=== PATIENT | female | born 1985 | race Caucasian/White ===

== ENCOUNTER 2024-02-20 20:21 | Outpatient (REF) | payer MEDICAID, SELFPAY ==
[2024-02-27 12:10] LABS: Age Gdln ACOG Testing Note (.); HPV Aptima Negative (Negative); IGP, Aptima HPV, rfx 16/18,45 Note (.)
== END 2024-02-20 20:22 | disposition home or self-care (01) ==
LOC: LAB 20:21
PROVIDERS: Visit Provider Obstetrics & Gynecology
DX: Z01.419 Encounter for gynecological examination (general) (routine) without abnormal findings (principal)
CPT/HCPCS: 87624; G0145

== ENCOUNTER 2024-09-17 11:38 | Outpatient (OUT) | payer MEDICAID, SELFPAY ==
[2024-09-17 14:11] LABS: Glucose 70 mg/dL (74-106); Thyroid Stimulating Hormone 1.074 uIU/mL (0.358-3.740)
[2024-09-17 14:31] LABS: Free T4 0.97 ng/dL (0.76-1.46)
[2024-09-17 14:35] LABS: Estimated Average Glucose 82 mg/dL; Glycohemoglobin A1C 4.5 % (4.5-6.2)
[2024-09-18 04:08] LABS: Estradiol 25.9 pg/mL (.); Progesterone <0.1 ng/mL (.); Sex Horm Binding Glob, Serum 84.5 nmol/L (24.6-122.0)
[2024-09-18 08:14] LABS: C-Peptide, Serum 2.5 ng/mL (1.1-4.4)
[2024-09-18 16:10] LABS: Thyroglobulin Antibody <1.0 IU/mL (0.0-0.9); Thyroid Peroxidase (TPO) Ab 10 IU/mL (0-34)
[2024-09-21 14:09] LABS: Reverse T3, Serum 15.1 ng/dL (9.2-24.1)
[2024-09-23 00:06] LABS: Free Testosterone(Direct) 0.8 pg/mL (0.0-4.2); Testosterone 18 ng/dL (8-60)
[2024-09-23 08:14] LABS: Serotonin, Serum 20 ng/mL (31-207)
[2024-09-23 16:10] LABS: Estrone, Serum 43 pg/mL (27-231)
== END 2024-09-17 11:39 | disposition home or self-care (01) ==
LOC: LAB 11:40
PROVIDERS: Visit Provider Obstetrics & Gynecology
DX: E34.9 Endocrine disorder, unspecified (principal)
CPT/HCPCS: 36415; 82306; 82530; 82627; 82670; 82679; 82728; 82947; 83036; 83525; 84144; 84260; 84270; 84402; 84403; 84432; 84436; 84439; 84443; 84481; 84482; 84681; 86376; 86800

== ENCOUNTER 2024-09-21 10:50 | Outpatient (OUT) | payer MEDICAID, SELFPAY ==
--- OUTSIDE RECORDS SUMMARY | 2024-09-21 10:55 | XMS_ITS | CCD ---
Author Organization [facility] Care Team Providers Care Senior Cobol Developer Name Role Phone KEMAR, DR SALAZAR Primary Care Unavailable KARASIK ., DR UP Attending Unavailabl e KARASIK ., DR UP Consulting Unavailabl e KARASIK ., DR UP Admitting Unavailabl e MISC, DR SALAZAR Primary Care Unavailable KARASIK ., DR UP Attending Unavailabl e KARASIK ., DR UP Consulting Unavailabl e KARASIK ., DR UP Admitting Unavailabl e EMMANUEL ., DR NANCE Admitting Unavailable EMMANUEL ., DR NANCE Attending Unavailable EMMANUEL ., DR NANCE Consulting Unavailable KARASIK ., DR UP Primary Care Unavailabl e KARASIK ., DR UP Attending Unavailabl e KARASIK ., DR UP Consulting Unavailabl e KARASIK ., DR UP Admitting Unavailabl e REQUEST, NONE LISTED Primary Care Unavaila ble ZIEBER, DR MANISHA Roe Consulting Unavailable KARASIK ., DR UP Attending Unavailabl e KARASIK ., DR UP Consulting Unavailabl e MISC, DR SALAZAR Primary Care Unavailable KARASIK ., DR UP Admitting Unavailabl e ZIEBER, DR MANISHA Roe Consulting Unavailable KARASIK ., DR UP Consulting Unavailabl e KARASIK ., DR UP Admitting Unavailabl e REQUEST, DR OZUNA LISTED Primary Care Unavaila ble KARASIK ., DR UP Attending Unavailabl e ZIEBER, DR MANISHA Roe Consulting Unavailable KARASIK ., DR UP Consulting Unavailabl e KARASIK ., DR UP Primary Care Unavailabl e KARASIK ., DR UP Admitting Unavailabl e KARASIK ., DR UP Attending Unavailabl e ZIEBER, DR MANISHA Roe Consulting Unavailable KARASIK ., DR UP Admitting Unavailabl e REQUEST, DR OZUNA LISTED Primary Care Unavaila ble JONELLE, KERRI Consulting Unavailable KARASIK ., DR UP Attending Unavailabl e KARASIK ., DR UP Consulting Unavailabl e REQUEST, DR SULMA LISTED Primary Care Unavaila ble KARASIK ., DR UP Attending Unavailabl e KARASIK ., DR UP Admitting Unavailabl e FAWWAD, KLINE H Admitting Unavailable FAWWAD, KLINE H Attending Unavailable FAWWAD, KLINE H Primary Care Unavailable FAWWAD, KLINE H Consulting Unavailable FAWWAD, KLINE H Primary Care Unavailable KARASIK ., DR UP Attending Unavailabl e KARASIK ., DR UP Consulting Unavailabl e KARASIK ., DR UP Admitting Unavailabl e KARASIK ., DR UP Attending Unavailabl e KARASIK ., DR UP Consulting Unavailabl e KARASIK ., DR UP Primary Care Unavailabl e KARASIK ., DR UP Admitting Unavailabl e EMMANUEL ., DR NANCE Admitting Unavailable EMMANUEL ., DR NANCE Attending Unavailable KARASIK ., DR UP Consulting Unavailabl e KARASIK ., DR UP Primary Care Unavailabl e WEST, DR SHELLEY Man Consulting Unavailable REQUEST, DR SULMA LISTED Primary Care Unavaila ble KARASIK ., DR UP Attending Unavailabl e KARASIK ., DR UP Consulting Unavailabl e KARASIK ., DR UP Admitting Unavailabl e ZIEBER, DR MANISHA Roe Consulting Unavailable EMMANUEL ., DR NANCE Attending Unavailable KARASIK ., DR UP Consulting Unavailabl e EMMANUEL ., DR NANCE Admitting Unavailable REQUEST, DR USLMA LISTED Primary Care Unavaila ble ZIEBER, DR MANISHA Roe Consulting Unavailable KARASIK ., DR UP Consulting Unavailabl e KARASIK ., DR UP Admitting Unavailabl e REQUEST, DR OZUNA LISTED Primary Care Unavaila ble KARASIK ., DR UP Attending Unavailabl e KARASIK ., DR UP Attending Unavailabl e KARASIK ., DR UP Consulting Unavailabl e KARASIK ., DR UP Primary Care Unavailabl e KARASIK ., DR UP Admitting Unavailabl e EMMANUEL ., DR NANCE Attending Unavailable KARASIK ., DR UP Consulting Unavailabl e EMMANUEL ., DR NANCE Admitting Unavailable FAWWAD, KLINE H Primary Care Unavailable EMMANUEL ., DR NANCE Consulting Unavailable AGUBOSIM, PIPER Consulting Unavailable KARASIK ., DR UP Procedure Practitioner Radha vailable KARASIK ., DR UP Consulting Unavailabl e REQUEST, DR NONE LISTED Primary Care Unavaila ble KARASIK ., DR UP Attending Unavailabl e KARASIK ., DR UP Admitting Unavailabl e REQUEST, DR NONE LISTED Primary Care Unavaila ble KARASIK ., DR UP Attending Unavailabl e KARASIK ., DR UP Admitting Unavailabl e KARASIK ., DR UP Attending Unavailabl e KARASIK ., DR UP Admitting Unavailabl e REQUEST, DR NONE LISTED Primary Care Unavaila ble KARASIK ., DR UP Attending Unavailabl e KARASIK ., DR UP Consulting Unavailabl e KARASIK ., DR UP Primary Care Unavailabl e KARASIK ., DR UP Admitting Unavailabl e REQUEST, DR NONE LISTED Primary Care Unavaila ble KARASIK ., DR UP Attending Unavailabl e KARASIK ., DR UP Admitting Unavailabl e Shaikh Ceballos MD Primary Care Provider KODI MONTENEGRO Attending Unavailable DANAY MELCHOR Referring Unavailabl e FAWWAD, KLINE Primary Care Unavailable ALISTAIR ZAVALA Attending Unavailable FARAVINDRA, KLINE Referring Unavailable FAWWAD, KLINE Primary Care Unavailable MAGALI, Attending Unavailable MAGALI, Attending Unavailable LEE ANN BENITEZ Attending Unavailable FAWWAD, KLINE Attending Unavailable Danay Melchor MD Unavailable Shaikh Ceballos MD Unavailable Shaikh Ceballos MD Primary Care Provider Allergies Allergy Classification Reported Allergen(s) Allergy Type Date of Onset Reaction(s) Facility (1 source) Amoxicillin Drug Allergy 7 [facility] (2 sources) Penicillins; Translations: [PENICILLINS] Drug allergy (disorder) 7 [facility] (4 sources) Azithromycin; Translations: [AZITHROMYCIN] Drug Allergy 8 [facility] (2 sources) Penicillins Propensity to adverse reactions to drug 8 [facility] (1 source) Amoxicillin Drug Allergy 4 Rash, Other [facility] (1 source) Penicillin G Drug Allergy 4 Rash [facility] (1 source) Penicillins Drug Allergy 4 Rash, Other [facility] Medications Current Medications Medication Drug Class(es) Dates Sig (Normalized) Sig (Original) acetaminophen 325 mg / oxyCODONE hydrochloride 5 mg oral tablet (2 sources) Opioid Agonist Start: 11-10-2023 oxyCODONE-acetamin ophen (PERCOCET) 5-325 mg per tablet Indications: Other acute appendicitis Take 1 tablet by mouth every 6 (six) hours as needed for pain for up to 8 doses. Max Daily Amount: 4 tablets 8 tablet 0 11/10/2023 Active ibuprofen 800 mg oral tablet (2 sources) Nonsteroidal Anti-inflammatory Drug Start: 11-10-2023 take 1 tablet by mouth every eight hours as needed for pain and fever ibuprofen (MOTRIN) 800 mg tablet Take 1 tablet (800 mg total) by mouth every 8 (eight) hours as needed for pain or fever. 30 tablet 0 11/10/2023 Active sertraline 50 mg oral tablet (3 sources) Serotonin Reuptake Inhibitor Start: 02-20-2024 End: 02-19-2025 take 1 tablet by mouth once daily sertraline (Zoloft) 50 MG tablet Indications: Hormone disorder Take 1 tablet (50 mg) by mouth Daily 30 tablet 11 02/20/2024 02/19/2025 Active take 1 tablet by mouth in the mo rning sertraline (ZOLOFT) 50 mg tablet Take 1 tablet (50 mg total) by mouth in the morning. 0 Active Problems Active Problems Problem Classification Problem Date Documented Date Episodic/Chronic Anxiety disorders (1 source) Mixed anxiety and depressive disorder; Translations: [Other specified anxiety disorders] Onset: 12-23-2023 12-23-2023 Chronic Appendicitis and other appendiceal conditions (2 sources) Acute appendicitis; Translations: [Other acute appendicitis without perforation or gangrene] Onset: 11-10-2023 11-10-2023 Episodic Blindness and vision defects (2 sources) Bilateral myopia of eyes; Translations: [Myopia, bilateral] Onset: 12-03-2023 12-03-2023 Episodic Coagulation and hemorrhagic disorders (6 sources) Activated protein C resistance; Translations: [Factor V Leiden mutation] Onset: 03-24-2022 Chronic Deficiency and other anemia (1 source) Iron deficiency anemia secondary to blood loss (chronic); Translations: [IRON DEFIC ANEMIA SEC BLD LOSS CHRN] Onset: 02-23-2023 Chronic Diabetes or abnormal glucose tolerance complicating ; childbirth; or the puerperium (13 sources) Personal history of gestational diabetes; Translations: [Gestational diabetes mellitus in childbirth, diet controlled] Onset: 06-29-2022 Episodic Esophageal disorders (1 source) Gastro-esophageal reflux disease without esophagitis; Translations: [GERD WITHOUT ESOPHAGITIS] Onset: 07-24-2022 Chronic Immunizations and screening for infectious disease (1 source) Encounter for screening for human papillomavirus (HPV); Translations: [ENC SCREENING HUMAN PAPILLOMAVIRUS] Onset: 02-23-2023 Episodic Mood disorders (1 source) Major depression, single episode; Translations: [Major depressive disorder, single episode, unspecified] Onset: 01-29-2024 01-29-2024 Chronic Mood disorders (1 source) Mood disorders; Translations: [DEPRESSION UNSPECIFIED] Onset: 07-24-2022 Other eye disorders (1 source) Physiologic anisocoria; Translations: [Anisocoria] 12-03-2023 Chronic Other eye disorders (1 source) Anisocoria; Translations: [Anisocoria] Onset: 12-03-2023 Chronic Other nutritional; endocrine; and metabolic disorders (1 source) Obesity caused by energy imbalance; Translations: [Class 1 obesity due to excess calories without serious comorbidity with body mass index (BMI) of 33.0 to 33.9 in adult] Onset: 12-23-2023 12-23-2023 Chronic Other nutritional; endocrine; and metabolic disorders (1 source) Obese class I; Translations: [Class 1 obesity] Onset: 01-29-2024 01-29-2024 Chronic Residual codes; unclassified (2 sources) Acquired absence of other specified parts of digestive tract; Translations: [Other postprocedural status] Onset: 12-04-2023 12-03-2023 Episodic Unclassified (1 source) CONTACT W/AND (SUSP) EXPOS COVID-19; Translations: [CONTACT W/AND (SUSP) EXPOS COVID-19] Onset: 07-24-2022 Unclassified (1 source) POST-OP VISIT Onset: 12-04-2023 Unclassified (1 source) Blurred Vision Onset: 12-03-2023 Past or Other Problems Problem Classification Problem Date Documented Date Episodic/Chronic Malaise and fatigue (4 sources) Other fatigue; Translations: [OTHER FATIGUE] Onset: 10-16-2022 Episodic OB-related trauma to perineum and vulva (1 source) First degree perineal laceration during delivery; Translations: [FIRST DEG PERINEAL LAC DUR DELIV] Onset: 07-24-2022 Episodic Other aftercare (1 source) Other assisted (current) drug therapy; Translations: [OT SOLDERING MACHINE OPERATOR HELPER CURRENT DRUG THERAPY] Onset: 07-24-2022 Episodic Other complications of ; puerperium affecting management of mother (1 source) Rupture of uterus during labor; Translations: [RUPTURE OF UTERUS DURING LABOR] Onset: 07-24-2022 Episodic Other complications of ; puerperium affecting management of mother (1 source) Other diseases of the blood and blood-forming organs and certain disorders involving the immune mechanism complicating childbirth; Translations: [OT DZ BLD BFO IMMUN COMP CHILDBRTH] Onset: 07-24-2022 Episodic Other complications of ; puerperium affecting management of mother (1 source) Other immediate hemorrhage; Translations: [OT IMMEDIATE HEMORRHAGE] Onset: 07-24-2022 Episodic Other complications of ; puerperium affecting management of mother (1 source) Other mental disorders complicating childbirth; Translations: [OT MENTAL D/O COMP CHILDBIRTH] Onset: 07-24-2022 Episodic Other complications of ; puerperium affecting management of mother (1 source) Diseases of the digestive system complicating childbirth; Translations: [DZ DIGESTIVE SYSTEM COMP CHILDBIRTH] Onset: 07-24-2022 Episodic Other complications of (1 source) Supervision of elderly multigravida, third trimester; Translations: [SUP ELDER MULTIGRAVIDA THIRD TRI] Onset: 06-01-2022 Episodic Other complications of (1 source) Other diseases of the blood and blood-forming organs and certain disorders involving the immune mechanism complicating , unspecified trimester; Translations: [OTH DZ BLD BFO IMMN COMP PG UNS TRI] Onset: 05-10-2022 Episodic Other and delivery including normal (5 sources) Encounter for routine follow-up; Translations: [Single live ] Onset: 07-20-2022 Episodic Other screening for suspected conditions (not mental disorders or infectious disease) (20 sources) Encounter for screening for malignant neoplasm of cervix; Translations: [Encounter for screening for Streptococcus B] Onset: 03-12-2022 Episodic Other skin disorders (1 source) Lesion of scalp; Translations: [Disorder of the skin and subcutaneous tissue, unspecified] Onset: 03-25-2024 03-25-2024 Episodic Otitis media and related conditions (1 source) Otitis media of left ear; Translations: [Otitis media, unspecified, left ear] Onset: 01-29-2024 01-29-2024 Episodic Residual codes; unclassified (1 source) 38 weeks gestation of ; Translations: [38 WEEKS GESTATION OF ] Onset: 07-24-2022 Episodic Residual codes; unclassified (1 source) 37 weeks gestation of ; Translations: [37 WEEKS GESTATION OF ] Onset: 07-08-2022 Episodic Residual codes; unclassified (1 source) 36 weeks gestation of ; Translations: [36 WEEKS GESTATION OF ] Onset: 07-02-2022 Episodic Residual codes; unclassified (1 source) 35 weeks gestation of ; Translations: [35 WEEKS GESTATION OF ] Onset: 06-25-2022 Episodic Residual codes; unclassified (1 source) 33 weeks gestation of ; Translations: [33 WEEKS GESTATION OF ] Onset: 06-10-2022 Episodic Residual codes; unclassified (1 source) 32 weeks gestation of ; Translations: [32 WEEKS GESTATION OF ] Onset: 06-01-2022 Episodic Residual codes; unclassified (1 source) 20 weeks gestation of ; Translations: [20 WEEKS GESTATION OF ] Onset: 03-15-2022 Episodic Results Test Name Value Interpretation Reference Range Facility ALL T3 FREEon 09-17-2024 Free T3 [Mass/Vol] 2.2 pg/mL 2.18 - 3. 98 pg/mL [facility] ALL THYROID STIM HORMONEon 1 TSH Qn 1.074 m[IU]/L [facility] ALL THYROXINE (T4)on 024 T4 [Mass/Vol] 7.5 ug/dL 4.80 - 13.90 ug/dL [facility] No Panel Informationon 09-17 [facility] GLUCOSE BLOODon 09-17-20 24 Glucose [Mass/Vol] 70 mg/dL Low 74 - 106 mg/dL NO [facility] Interpretation and review of laboratory results Abnormal [facility] Surgical Pathologyon 023 Surgical Pathology Normal [facility] Comment on above: Result Comment: [facility] [address] [place] [address] Surgical Pathology Consultation Patient Name:RONAN PENG:1985 (Age: 38)Gender:FTaken:11/10/2023Reported:11/18/2023hysician(s):Brett Berry D.O. ([phone])Copy To: Rec. #:[id number]: #[id number] Final Pathologic Diagnosis Appendix, appendectomy: Acute appendicitis. Report Electronically Signed Out 11/18/2023leyla Cbob MD [facility] [address] [place] [address], License number: [id number]. Clinical History Acute appendicitis. Gross Description Received in formalin labeled PENG, appendix is a vermiform appendix that measures 6.4 x 0.8 x 0.7 cm. The mesoappendix is yellow-jhaveri and lobulated up to 0.5 cm in thickness. The proximal margin is closed by metallic kayode and is now inked black. The serosal surface is west to purple-jhaveri with possible exudate. The appendix is serially sectioned to reveal a lumen that measures 0.1-0.3 cm. The lumen is filled with vegetative hemorrhagic material. No serosal rupture or defect is identified. Life Sciences Director cross-sections are submitted in a single cassette to include the proximal margin, two cross-sections, and a half portion of the distal tip. (1, ss, [id number],m1) DM. dm/11/11/2023P Specimen(s) Received Appendix Fee Codes(s): 1; 98243 PAP ACOG PANEL 2: 30 to 65on 02-26-2023 . . Normal [facility] Comment on above: Result Comment: Perf ormed at: WB Performed By: #### C BC #### [facility] [address] [address] [address] Perez Tabares Age Gdln ACOG Testing 30-[address] [facility] Comment on above: Performed By: #### C BC #### [facility] [address] [address] [address] Perez Tabares DIAGNOSIS: Comment Normal [facility] Comment on above: Result Comment: NEGA TIVE FOR INTRAEPITHELIAL LESION OR MALIGNANCY. Performed at: WB Performed By: #### C BC #### [facility] [address] [place] [address] Dr. Perez Tabares HPV Aptima Negative Normal Negative [facility] Comment on above: Result Comment: This nucleic acid amplification test detects fourteen high-risk HPV types (16,18,31,33,35,39,45,51,52,56,58,59,66,68) without differentiation. Performed at: =G Performed By: #### C BC #### [facility] [address] [address] [address] Perez Tabares HPV Genotype Reflex Comment Normal [facility] Comment on above: Result Comment: Crit eria not met, HPV Genotype not performed. Performed at: WB Performed By: #### C BC #### [facility] [address] [address] [address] Perez Tabares Methodology: Comment Normal [facility] Comment on above: Result Comment: This liquid based ThinPrep(R) pap test was screened with the use of an image guided system. Performed at: WB Performed By: #### C BC #### [facility] [address] [place] [address] Dr. Perez Tabares Note: Comment Normal [facility] Comment on above: Result Comment: The Pap smear is a screening test designed to aid in the detection of premalignant and malignant conditions of the uterine cervix. It is not a diagnostic procedure and should not be used as the sole means of detecting cervical cancer. Both false-positive and false-negative reports do occur. . Performed at: WB Performed By: #### C BC #### [facility] [address] [place] [address] Dr. Perez Tabares Performed by: Comment Normal [facility] Comment on above: Result Comment: Michelle Woo, Supervisory Quill Cleaning Machine Operator (ASCP) Performed at: WB Performed By: #### C BC #### [facility] [address] [place] [address] Dr. Perez Tabares Specimen adequacy: Comment Normal [facility] Comment on above: Result Comment: Sati sfactory for evaluation. Endocervical and/or squamous metaplastic cells (endocervical component) are present. Performed at: WB Performed By: #### C BC #### [facility] [address] [place] [address] Dr. Perez Tabares CBC AUTO DIFFon 02-19-2023 BASO # 0.0 103/ul Normal 0.0-0.[address] [facility] Comment on above: Performed By: #### C BC #### [facility] [address] [place] [address] Dr. Perez Tabares Basophils/100 WBC (Bld) 0.6 % Normal 0.2-2.[address] [facility] Comment on above: Performed By: #### C BC #### [facility] [address] [place] [address] Dr. Perez Tabares EO # 0.5 103/ul Normal 0.0-0.[address] [facility] Comment on above: Performed By: #### C BC #### [facility] [address] [place] [address] Dr. Perez Tabares Eosinophils/100 WBC (Bld) 7.5 % Critically high 0.9-7.[address] [facility] Comment on above: Performed By: #### C BC #### [facility] [address] [place] [address] Dr. Perez Tabares Erythrocyte distribution width (RBC) [Ratio] 13.0 % Normal 11.0-15.[address] [facility] Comment on above: Performed By: #### C BC #### [facility] [address] [place] [address] Dr. Perez Tabares Hematocrit (Bld) [Volume fraction] 38.9 % Normal 36.0-48.[address] [facility] Comment on above: Performed By: #### C BC #### [facility] [address] [place] [address] Dr. Perez Tabares Hemoglobin (Bld) [Mass/Vol] 13.3 g/dL Normal 12.0-16.[address] [facility] Comment on above: Performed By: #### C BC #### [facility] [address] [place] [address] Dr. Perez Tabares IG # 0.01 10e3/ul Normal 0.00-0.[address] [facility] Comment on above: Performed By: #### C BC #### [facility] [address] [place] [address] Dr. Perez Tabares IG % 0.1 % Normal 0.0-0.[address] [facility] Comment on above: Performed By: #### C BC #### [facility] [address] [place] [address] Dr. Perez Tabares LYMPH # 2.2 103/ul Normal 1.2-3.[address] [facility] Comment on above: Performed By: #### C BC #### [facility] [address] [place] [address] Dr. Perez Tabares Lymphocytes/100 WBC (Bld) 31.9 % Normal 20.5-60.[address] [facility] Comment on above: Performed By: #### C BC #### [facility] [address] [place] [address] Dr. Perez Tabares MANUAL DIFF REQ NO Normal [facility] Comment on above: Performed By: #### C BC #### [facility] [address] [place] [address] Dr. Perez Tabares MCH (RBC) [Entitic mass] 30.7 pg Normal 26.7-34.[address] [facility] Comment on above: Performed By: #### C BC #### [facility] [address] [place] [address] Dr. Perez Tabares MCHC (RBC) [Mass/Vol] 34.2 g/dL Normal 29.9-35.[address] [facility] Comment on above: Performed By: #### C BC #### [facility] [address] [place] [address] Dr. Perez Tabares MCV (RBC) [Entitic vol] 89.8 fL Normal 81.0-99.[address] [facility] Comment on above: Performed By: #### C BC #### [facility] [address] [place] [address] Dr. Perez Tabares MONO # 0.5 103/ul Normal 0.3-0.[address] [facility] Comment on above: Performed By: #### C BC #### [facility] [address] [place] [address] Dr. Perez Tabares Monocytes/100 WBC (Bld) 6.4 % Normal 1.7-12.[address] [facility] Comment on above: Performed By: #### C BC #### [facility] [address] [place] [address] Dr. Perez Tabares NEUT # 3.8 103/ul Normal 1.4-6.[address] [facility] Comment on above: Performed By: #### C BC #### [facility] [address] [place] [address] Dr. Perez Tabares Neutrophils/100 WBC (Bld) 53.5 % Normal 43.0-75.0 [facility] Comment on above: Performed By: #### C BC #### [facility] [address] [place] [address] Dr. Perez Tabares Platelet mean volume (Bld) [Entitic vol] 10.2 fL Normal 9.5-13.5 [facility] Comment on above: Performed By: #### C BC #### [facility] [address] [place] [address] Dr. Perez Tabares PLT 253 103/ul Normal 150-450 [facility] Comment on above: Performed By: #### C BC #### [facility] [address] [place] [address] Dr. Perez Tabares RBC 4.33 106/ul Normal 4.20-5.[address] [facility] Comment on above: Performed By: #### C BC #### [facility] [address] [place] [address] Dr. Perez Tabares WBC 7.0 103/ul Normal 4.0-11.[address] [facility] Comment on above: Performed By: #### C BC #### [facility] [address] [place] [address] Dr. Perez Tabares GLYCOHEMOGLOBIN A1Con 2022 ADA RECOMMENDATION SEE BELOW Normal [facility] Comment on above: Result Comment: ADA RECOMMENDED LIMIT 4.0 - 6.0 ADA THERAPEUTIC TARGET < 7.0 ACTION SUGGESTED > 7.0 Performed By: #### F VPCR #### [facility] [address] [place] [address] Dr. Perez Tabares Glucose [Mass/Vol] 94 mg/dL Normal [facility] Comment on above: Performed By: #### F VPCR #### [facility] [address] [place] [address] Dr. Perez Tabares HbA1c (Bld) [Mass fraction] 4.9 % Normal 4.5-6.[address] [facility] Comment on above: Performed By: #### F VPCR #### [facility] [address] [place] [address] Dr. Perez Tabares CBC AUTO DIFFon 10-16-2022 BASO # 0.0 103/ul Normal 0.0-0.[address] [facility] Comment on above: Performed By: #### F VPCR #### [facility] [address] [place] [address] Dr. Perez Tabares Basophils/100 WBC (Bld) 0.5 % Normal 0.2-2.[address] [facility] Comment on above: Performed By: #### F VPCR #### [facility] [address] [place] [address] Dr. Perez Tabares EO # 1.2 103/ul Critically high 0.0-0.7 [facility] Comment on above: Performed By: #### F VPCR #### [facility] [address] [place] [address] Dr. Perez Tabares Eosinophils/100 WBC (Bld) 15.0 % Critically high 0.9-7.[address] [facility] Comment on above: Performed By: #### F VPCR #### [facility] [address] [place] [address] Dr. Perez Tabares Erythrocyte distribution width (RBC) [Ratio] 14.7 % Normal 11.0-15.[address] [facility] Comment on above: Performed By: #### F VPCR #### [facility] [address] [place] [address] Dr. Perez Tabares Hematocrit (Bld) [Volume fraction] 38.5 % Normal 36.0-48.[address] [facility] Comment on above: Performed By: #### F VPCR #### [facility] [address] [place] [address] Dr. Perez Tabares Hemoglobin (Bld) [Mass/Vol] 13.1 g/dL Normal 12.0-16.[address] [facility] Comment on above: Performed By: #### F VPCR #### [facility] [address] [place] [address] Dr. Perez Tabares IG # 0.01 10e3/ul Normal 0.00-0.[address] [facility] Comment on above: Performed By: #### F VPCR #### [facility] [address] [place] [address] Dr. Perez Tabares IG % 0.1 % Normal 0.0-0.5 [facility] Comment on above: Performed By: #### F VPCR #### [facility] [address] [place] [address] Dr. Perez Tabares LYMPH # 2.4 103/ul Normal 1.2-3.[address] [facility] Comment on above: Performed By: #### F VPCR #### [facility] [address] [place] [address] Dr. Perez Tabares Lymphocytes/100 WBC (Bld) 30.8 % Normal 20.5-60.[address] [facility] Comment on above: Performed By: #### F VPCR #### [facility] [address] [place] [address] Dr. Perez Tabares MANUAL DIFF REQ NO Normal [facility] Comment on above: Performed By: #### F VPCR #### [facility] [address] [place] [address] Dr. Perez Tabares MCH (RBC) [Entitic mass] 29.4 pg Normal 26.7-34.0 [facility] Comment on above: Performed By: #### F VPCR #### [facility] [address] [place] [address] Dr. Perez Tabares MCHC (RBC) [Mass/Vol] 34.0 g/dL Normal 29.9-35.2 [facility] Comment on above: Performed By: #### F VPCR #### [facility] [address] [place] [address] Dr. Perez Tabares MCV (RBC) [Entitic vol] 86.5 fL Normal 81.0-99.[address] [facility] Comment on above: Performed By: #### F VPCR #### [facility] [address] [place] [address] Dr. Perez Tabares MONO # 0.5 103/ul Normal 0.3-0.[address] [facility] Comment on above: Performed By: #### F VPCR #### [facility] [address] [place] [address] Dr. Perez Tbaares Monocytes/100 WBC (Bld) 6.1 % Normal 1.7-12.0 [facility] Comment on above: Performed By: #### F VPCR #### [facility] [address] [place] [address] Dr. Perez Tabares NEUT # 3.6 103/ul Normal 1.4-6.5 [facility] Comment on above: Performed By: #### F VPCR #### [facility] [address] [place] [address] Dr. Perez Tabares Neutrophils/100 WBC (Bld) 47.5 % Normal 43.0-75.[address] [facility] Comment on above: Performed By: #### F VPCR #### [facility] [address] [place] [address] Dr. Perez Tabares Platelet mean volume (Bld) [Entitic vol] 10.4 fL Normal 9.5-13.[address] [facility] Comment on above: Performed By: #### F VPCR #### [facility] [address] [place] [address] Dr. Perez Tabares PLT 245 103/ul Normal 150-450 [facility] Comment on above: Performed By: #### F VPCR #### [facility] [address] [place] [address] Dr. Perez Tabares RBC 4.45 106/ul Normal 4.20-5.40 [facility] Comment on above: Performed By: #### F VPCR #### [facility] [address] [place] [address] Dr. Perez Tabares WBC 7.7 103/ul Normal 4.0-11.0 [facility] Comment on above: Performed By: #### F VPCR #### [facility] [address] [place] [address] Dr. Perez Tabares TSHon 10-16-2022 TSH 1.131 uIU/mL Normal 0.358-3.740 [facility] Comment on above: Performed By: #### F IB, PT, PTT #### [facility] [address] [place] [address] Dr. Perez Tabares PRBC LEUKOREDUCEDon 07-17-20 ABO and Rh group Nom (Bld) Cross Match Result Compatible Unit Blood Type A Pos Unit Number [id number] Status Information Transfused Product ID Red Blood Cells Product Code [id number] Cross Match Result Compatible Unit Blood Type A Pos Unit Number [id number] Status Information Transfused Product ID Red Blood Cells Product Code [id number] Normal [facility] Comment on above: Performed By: #### F VPCR #### [facility] [address] [place] [address] Dr. Perez Tabares ABO and Rh group Nom (Bld) Cross Match Result Compatible Unit Blood Type A Pos Unit Number [id number] Status Information Transfused Product ID Red Blood Cells Product Code [id number] Cross Match Result Compatible Unit Blood Type A Pos Unit Number [id number] Status Information Transfused Product ID Red Blood Cells Product Code [id number] Normal [facility] Comment on above: Performed By: #### F VPCR #### [facility] [address] [place] [address] Dr. Perez Tabares CBC AUTO DIFFon 07-14-2022 BASO # 0.0 103/ul Normal 0.0-0.1 [facility] Comment on above: Performed By: #### C BC #### [facility] [address] [place] [address] Dr. Perez Tabares Basophils/100 WBC (Bld) 0.3 % Normal 0.2-2.0 [facility] Comment on above: Performed By: #### C BC #### [facility] [address] [place] [address] Dr. Perez Tabares EO # 0.4 103/ul Normal 0.0-0.7 [facility] Comment on above: Performed By: #### C BC #### [facility] [address] [place] [address] Dr. Perez Tabares Eosinophils/100 WBC (Bld) 3.4 % Normal 0.9-7.0 [facility] Comment on above: Performed By: #### C BC #### [facility] [address] [place] [address] Dr. Perez Tabares Erythrocyte distribution width (RBC) [Ratio] 16.1 % Critically high 11.0-15.0 [facility] Comment on above: Performed By: #### C BC #### [facility] [address] [place] [address] Dr. Perez Tabares Hematocrit (Bld) [Volume fraction] 24.6 % Critically low 36.0-48.0 [facility] Comment on above: Performed By: #### C BC #### [facility] [address] [address] [address] Perez Tabares Hemoglobin (Bld) [Mass/Vol] 8.3 g/dL Critically low 12.0-16.[address] [facility] Comment on above: Performed By: #### C BC #### [facility] [address] [place] [address] Dr. Perez Tabares IG # 0.13 10e3/ul Critically high 0.00-0.03 [facility] Comment on above: Performed By: #### C BC #### [facility] [address] [place] [address] Dr. Perez Tabares IG % 1.1 % Critically high 0.0-0.5 [facility] Comment on above: Performed By: #### C BC #### [facility] [address] [place] [address] Dr. Perez Tabares LYMPH # 2.0 103/ul Normal 1.2-3.8 [facility] Comment on above: Performed By: #### C BC #### [facility] [address] [place] [address] Dr. Perez Tabares Lymphocytes/100 WBC (Bld) 17.3 % Critically low 20.5-60.[address] [facility] Comment on above: Performed By: #### C BC #### [facility] [address] [place] [address] Dr. Perez Tabares MANUAL DIFF REQ NO Normal [facility] Comment on above: Performed By: #### C BC #### [facility] [address] [place] [address] Dr. Perez Tabares MCH (RBC) [Entitic mass] 30.1 pg Normal 26.7-34.0 [facility] Comment on above: Performed By: #### C BC #### [facility] [address] [place] [address] Dr. Perez Tabares MCHC (RBC) [Mass/Vol] 33.7 g/dL Normal 29.9-35.2 [facility] Comment on above: Performed By: #### C BC #### [facility] [address] [place] [address] Dr. Perez Tabares MCV (RBC) [Entitic vol] 89.1 fL Normal 81.0-99.[address] [facility] Comment on above: Performed By: #### C BC #### [facility] [address] [place] [address] Dr. Perez Tabares MONO # 0.7 103/ul Normal 0.3-0.[address] [facility] Comment on above: Performed By: #### C BC #### [facility] [address] [place] [address] Dr. Perez Tabares Monocytes/100 WBC (Bld) 5.7 % Normal 1.7-12.[address] [facility] Comment on above: Performed By: #### C BC #### [facility] [address] [place] [address] Dr. Perez Tabares NEUT # 8.3 103/ul Critically high 1.4-6.5 [facility] Comment on above: Performed By: #### C BC #### [facility] [address] [place] [address] Dr. Perez Tabares Neutrophils/100 WBC (Bld) 72.2 % Normal 43.0-75.[address] [facility] Comment on above: Performed By: #### C BC #### [facility] [address] [place] [address] Dr. Perez Tabares Platelet mean volume (Bld) [Entitic vol] 10.1 fL Normal 9.5-13.5 [facility] Comment on above: Performed By: #### C BC #### [facility] [address] [place] [address] Dr. Perez Tabares PLT 169 103/ul Normal 150-450 [facility] Comment on above: Performed By: #### C BC #### [facility] [address] [place] [address] Dr. Perez Tabares RBC 2.76 106/ul Critically low 4.20-5.40 [facility] Comment on above: Performed By: #### C BC #### [facility] [address] [place] [address] Dr. Perez Tabares WBC 11.5 103/ul Critically high 4.0-11.0 [facility] Comment on above: Performed By: #### C BC #### [facility] [address] [place] [address] Dr. Perez Tabares CBC AUTO DIFFon 07-13-2022 BASO # 0.0 103/ul Normal 0.0-0.[address] [facility] Comment on above: Performed By: #### C BC #### [facility] [address] [place] [address] Dr. Perez Tabares Basophils/100 WBC (Bld) 0.2 % Normal 0.2-2.[address] [facility] Comment on above: Performed By: #### C BC #### [facility] [address] [place] [address] Dr. Perez Tabares EO # 0.1 103/ul Normal 0.0-0.[address] [facility] Comment on above: Performed By: #### C BC #### [facility] [address] [place] [address] Dr. Perez Tabares Eosinophils/100 WBC (Bld) 0.4 % Critically low 0.9-7.[address] [facility] Comment on above: Performed By: #### C BC #### [facility] [address] [place] [address] Dr. Perez Tabares Erythrocyte distribution width (RBC) [Ratio] 16.0 % Critically high 11.0-15.[address] [facility] Comment on above: Performed By: #### C BC #### [facility] [address] [place] [address] Dr. Perez Tabares Hematocrit (Bld) [Volume fraction] 22.9 % Critically low 36.0-48.[address] [facility] Comment on above: Performed By: #### C BC #### [facility] [address] [place] [address] Dr. Perez Tabares Hemoglobin (Bld) [Mass/Vol] 7.9 g/dL Critically low 12.0-16.[address] [facility] Comment on above: Performed By: #### C BC #### [facility] [address] [place] [address] Dr. Perez Tabares IG # 0.13 10e3/ul Critically high 0.00-0.03 [facility] Comment on above: Performed By: #### C BC #### [facility] [address] [place] [address] Dr. Perez Tabares IG % 1.0 % Critically high 0.0-0.5 [facility] Comment on above: Performed By: #### C BC #### [facility] [address] [place] [address] Dr. Perez Tabares LYMPH # 1.5 103/ul Normal 1.2-3.[address] [facility] Comment on above: Performed By: #### C BC #### [facility] [address] [place] [address] Dr. Perez Tabares Lymphocytes/100 WBC (Bld) 11.7 % Critically low 20.5-60.[address] [facility] Comment on above: Performed By: #### C BC #### [facility] [address] [place] [address] Dr. Perez Tabares MANUAL DIFF REQ NO Normal [facility] Comment on above: Performed By: #### C BC #### [facility] [address] [place] [address] Dr. Perez Tabares MCH (RBC) [Entitic mass] 29.8 pg Normal 26.7-34.[address] [facility] Comment on above: Performed By: #### C BC #### [facility] [address] [place] [address] Dr. Perez Tabares MCHC (RBC) [Mass/Vol] 34.5 g/dL Normal 29.9-35.[address] [facility] Comment on above: Performed By: #### C BC #### [facility] [address] [place] [address] Dr. Perez Tabares MCV (RBC) [Entitic vol] 86.4 fL Normal 81.0-99.[address] [facility] Comment on above: Performed By: #### C BC #### [facility] [address] [place] [address] Dr. Perez Tabares MONO # 0.7 103/ul Normal 0.3-0.[address] [facility] Comment on above: Performed By: #### C BC #### [facility] [address] [place] [address] Dr. Perez Tabares Monocytes/100 WBC (Bld) 5.8 % Normal 1.7-12.[address] [facility] Comment on above: Performed By: #### C BC #### [facility] [address] [place] [address] Dr. Perez Tabares NEUT # 10.1 103/ul Critically high 1.4-6.5 [facility] Comment on above: Performed By: #### C BC #### [facility] [address] [place] [address] Dr. Perez Tabares Neutrophils/100 WBC (Bld) 80.9 % Critically high 43.0-75.[address] [facility] Comment on above: Performed By: #### C BC #### [facility] [address] [place] [address] Dr. Perez Tabares Platelet mean volume (Bld) [Entitic vol] 10.7 fL Normal 9.5-13.[address] [facility] Comment on above: Performed By: #### C BC #### [facility] [address] [place] [address] Dr. Perez Tabares PLT 133 103/ul Critically low 150-450 [facility] Comment on above: Performed By: #### C BC #### [facility] [address] [place] [address] Dr. Perez Tabares RBC 2.65 106/ul Critically low 4.20-5.40 [facility] Comment on above: Performed By: #### C BC #### [facility] [address] [place] [address] Dr. Perez Tabares WBC 12.5 103/ul Critically high 4.0-11.0 [facility] Comment on above: Performed By: #### C BC #### [facility] [address] [place] [address] Dr. Perez Perez 07-12-2022 Urea nitrogen [Mass/Vol] 7.0 mg/dL Normal 7.0-18.[address] [facility] Comment on above: Performed By: #### F IB, PT, PTT #### [facility] [address] [place] [address] Dr. Perez Tabares CBC AUTO DIFFon 07-12-2022 BASO # 0.0 103/ul Normal 0.0-0.1 [facility] Comment on above: Performed By: #### F IB, PT, PTT #### [facility] [address] [place] [address] Dr. Perez Tabares Basophils/100 WBC (Bld) 0.1 % Critically low 0.2-2.0 [facility] Comment on above: Performed By: #### F IB, PT, PTT #### [facility] [address] [place] [address] Dr. Perez Tabares EO # 0.0 103/ul Normal 0.0-0.7 [facility] Comment on above: Performed By: #### F IB, PT, PTT #### [facility] [address] [place] [address] Dr. Perez Tabares Eosinophils/100 WBC (Bld) 0.0 % Critically low 0.9-7.0 [facility] Comment on above: Performed By: #### F IB, PT, PTT #### [facility] [address] [place] [address] Dr. Perez Tabares Erythrocyte distribution width (RBC) [Ratio] 15.8 % Critically high 11.0-15.0 [facility] Comment on above: Performed By: #### F IB, PT, PTT #### [facility] [address] [place] [address] Dr. Perez Tabares Hematocrit (Bld) [Volume fraction] 25.4 % Critically low 36.0-48.0 [facility] Comment on above: Performed By: #### F IB, PT, PTT #### [facility] [address] [place] [address] Dr. Perez Tabares Hemoglobin (Bld) [Mass/Vol] 8.8 g/dL Critically low 12.0-16.0 [facility] Comment on above: Performed By: #### F IB, PT, PTT #### [facility] [address] [address] [address] Perez Tabares IG # 0.13 10e3/ul Critically high 0.00-0.03 [facility] Comment on above: Performed By: #### F IB, PT, PTT #### [facility] [address] [address] [address] Perez Tabares IG % 0.8 % Critically high 0.0-0.5 [facility] Comment on above: Performed By: #### F IB, PT, PTT #### [facility] [address] [address] [address] Perez Tabares LYMPH # 1.0 103/ul Critically low 1.2-3.8 [facility] Comment on above: Performed By: #### F IB, PT, PTT #### [facility] [address] [address] [address] Perez Tabares Lymphocytes/100 WBC (Bld) 6.6 % Critically low 20.5-60.[address] [facility] Comment on above: Performed By: #### F IB, PT, PTT #### [facility] [address] [place] [address] Dr. Perez Tabares MANUAL DIFF REQ NO Normal [facility] Comment on above: Performed By: #### F IB, PT, PTT #### [facility] [address] [address] [address] Perez Tabares MCH (RBC) [Entitic mass] 30.0 pg Normal 26.7-34.[address] [facility] Comment on above: Performed By: #### F IB, PT, PTT #### [facility] [address] [address] [address] Perez Tabares MCHC (RBC) [Mass/Vol] 34.6 g/dL Normal 29.9-35.[address] [facility] Comment on above: Performed By: #### F IB, PT, PTT #### [facility] [address] [place] [address] Dr. Perez Tabares MCV (RBC) [Entitic vol] 86.7 fL Normal 81.0-99.0 [facility] Comment on above: Performed By: #### F IB, PT, PTT #### [facility] [address] [place] [address] Dr. Perez Tabares MONO # 0.9 103/ul Critically high 0.3-0.8 [facility] Comment on above: Performed By: #### F IB, PT, PTT #### [facility] [address] [place] [address] Dr. Perez Tabares Monocytes/100 WBC (Bld) 6.1 % Normal 1.7-12.0 [facility] Comment on above: Performed By: #### F IB, PT, PTT #### [facility] [address] [place] [address] Dr. Perez Tabares NEUT # 13.3 103/ul Critically high 1.4-6.5 [facility] Comment on above: Performed By: #### F IB, PT, PTT #### [facility] [address] [place] [address] Dr. Perez Tabares Neutrophils/100 WBC (Bld) 86.4 % Critically high 43.0-75.0 [facility] Comment on above: Performed By: #### F IB, PT, PTT #### [facility] [address] [place] [address] Dr. Perez Tabares Platelet mean volume (Bld) [Entitic vol] 11.0 fL Normal 9.5-13.5 [facility] Comment on above: Performed By: #### F IB, PT, PTT #### [facility] [address] [place] [address] Dr. Perez Tabares PLT 127 103/ul Critically low 150-450 [facility] Comment on above: Performed By: #### F IB, PT, PTT #### [facility] [address] [place] [address] Dr. Perez Tabares RBC 2.93 106/ul Critically low 4.20-5.40 [facility] Comment on above: Performed By: #### F IB, PT, PTT #### [facility] [address] [place] [address] Dr. Perez Tabares WBC 15.4 103/ul Critically high 4.0-11.0 [facility] Comment on above: Performed By: #### F IB, PT, PTT #### [facility] [address] [place] [address] Dr. Perez Tabares CREATININEon 07-12-2022 Creatinine [Mass/Vol] 0.51 mg/dL Critically low 0.55-1.02 [facility] Comment on above: Performed By: #### F IB, PT, PTT #### [facility] [address] [place] [address] Dr. Perez Tabares EGFR-AF FINNISH >60 Normal >=60 [facility] Comment on above: Performed By: #### F IB, PT, PTT #### [facility] [address] [place] [address] Dr. Perez Tabares EGFR-NON AF FINNISH >60 Normal >=60 [facility] Comment on above: Performed By: #### F IB, PT, PTT #### [facility] [address] [place] [address] Dr. Perez Tabares CBC AUTO DIFFon 07-11-2022 BASO # 0.0 103/ul Normal 0.0-0.[address] [facility] Comment on above: Performed By: #### F IB, PT, PTT #### [facility] [address] [place] [address] Dr. Perez Tabares Basophils/100 WBC (Bld) 0.2 % Normal 0.2-2.0 [facility] Comment on above: Performed By: #### F IB, PT, PTT #### [facility] [address] [place] [address] Dr. Perez Tabares EO # 0.0 103/ul Normal 0.0-0.7 [facility] Comment on above: Performed By: #### F IB, PT, PTT #### [facility] [address] [place] [address] Dr. Perez Tabares Eosinophils/100 WBC (Bld) 0.1 % Critically low 0.9-7.0 [facility] Comment on above: Performed By: #### F IB, PT, PTT #### [facility] [address] [address] [address] Perez Tabares Erythrocyte distribution width (RBC) [Ratio] 14.4 % Normal 11.0-15.[address] [facility] Comment on above: Performed By: #### F IB, PT, PTT #### [facility] Laboratory [address] [place] [address] Dr. Perez Tabares Hematocrit (Bld) [Volume fraction] 32.4 % Critically low 36.0-48.[address] [facility] Comment on above: Performed By: #### F IB, PT, PTT #### [facility] [address] [place] [address] Dr. Perez Tabares Hemoglobin (Bld) [Mass/Vol] 11.1 g/dL Critically low 12.0-16.[address] [facility] Comment on above: Performed By: #### F IB, PT, PTT #### [facility] [address] [place] [address] Dr. Perez Tabares IG # 0.15 10e3/ul Critically high 0.00-0.03 [facility] Comment on above: Performed By: #### F IB, PT, PTT #### [facility] [address] [place] [address] Dr. Perez Tabares IG % 0.7 % Critically high 0.0-0.5 [facility] Comment on above: Performed By: #### F IB, PT, PTT #### [facility] [address] [place] [address] Dr. Perez Tabares LYMPH # 0.9 103/ul Critically low 1.2-3.8 [facility] Comment on above: Performed By: #### F IB, PT, PTT #### [facility] [address] [place] [address] Dr. Perez Tabares Lymphocytes/100 WBC (Bld) 4.6 % Critically low 20.5-60.[address] [facility] Comment on above: Performed By: #### F IB, PT, PTT #### [facility] [address] [place] [address] Dr. Perez Tabares MANUAL DIFF REQ NO Normal [facility] Comment on above: Performed By: #### F IB, PT, PTT #### [facility] [address] [place] [address] Dr. Perez Tabares MCH (RBC) [Entitic mass] 30.1 pg Normal 26.7-34.0 [facility] Comment on above: Performed By: #### F IB, PT, PTT #### [facility] [address] [place] [address] Dr. Perez Tabares MCHC (RBC) [Mass/Vol] 34.3 g/dL Normal 29.9-35.2 [facility] Comment on above: Performed By: #### F IB, PT, PTT #### [facility] [address] [place] [address] Dr. Perez Tabares MCV (RBC) [Entitic vol] 87.8 fL Normal 81.0-99.0 [facility] Comment on above: Performed By: #### F IB, PT, PTT #### [facility] [address] [place] [address] Dr. Perez Tabares MONO # 0.7 103/ul Normal 0.3-0.[address] [facility] Comment on above: Performed By: #### F IB, PT, PTT #### [facility] [address] [place] [address] Dr. Perez Tabares Performed By: #### C BC #### [facility] [address] [place] [address] Dr. Perez Tabares Monocytes/100 WBC (Bld) 3.4 % Normal 1.7-12.0 [facility] Comment on above: Performed By: #### F IB, PT, PTT #### [facility] [address] [place] [address] Dr. Perez Tabares NEUT # 18.5 103/ul Critically high 1.4-6.5 [facility] Comment on above: Performed By: #### F IB, PT, PTT #### [facility] [address] [place] [address] Dr. Perez Tabares Neutrophils/100 WBC (Bld) 91.0 % Critically high 43.0-75.0 [facility] Comment on above: Performed By: #### F IB, PT, PTT #### [facility] [address] [place] [address] Dr. Perez Tabares Platelet mean volume (Bld) [Entitic vol] 11.1 fL Normal 9.5-13.5 [facility] Comment on above: Performed By: #### F IB, PT, PTT #### [facility] [address] [place] [address] Dr. Perez Tabares PLT 125 103/ul Critically low 150-450 [facility] Comment on above: Performed By: #### F IB, PT, PTT #### [facility] [address] [place] [address] Dr. Perez Tabares RBC 3.69 106/ul Critically low 4.20-5.40 [facility] Comment on above: Performed By: #### F IB, PT, PTT #### [facility] [address] [place] [address] Dr. Perez Tabares WBC 20.3 103/ul Critically high 4.0-11.0 [facility] Comment on above: Performed By: #### F IB, PT, PTT #### [facility] [address] [place] [address] Dr. Perez Tabares BASO # 0.0 103/ul Normal 0.0-0.1 [facility] Comment on above: Performed By: #### C BC #### [facility] [address] [place] [address] Dr. Perez Tabares Basophils/100 WBC (Bld) 0.2 % Normal 0.2-2.0 [facility] Comment on above: Performed By: #### C BC #### [facility] [address] [place] [address] Dr. Perez Tabares EO # 0.2 103/ul Normal 0.0-0.7 [facility] Comment on above: Performed By: #### C BC #### [facility] [address] [place] [address] Dr. Perez Tabares Eosinophils/100 WBC (Bld) 1.1 % Normal 0.9-7.[address] [facility] Comment on above: Performed By: #### C BC #### [facility] [address] [address] [address] Perez Tabares Erythrocyte distribution width (RBC) [Ratio] 14.2 % Normal 11.0-15.[address] [facility] Comment on above: Performed By: #### C BC #### [facility] [address] [address] [address] Perez Tabares Hematocrit (Bld) [Volume fraction] 30.3 % Critically low 36.0-48.[address] [facility] Comment on above: Performed By: #### C BC #### [facility] [address] [place] [address] Dr. Perez Tabares Hemoglobin (Bld) [Mass/Vol] 10.4 g/dL Critically low 12.0-16.0 [facility] Comment on above: Result Comment: [facility] ENT DELIVERED--TO RECIEVE UNCROSS-MATCHED RBCS Performed By: #### C BC #### [facility] [address] [address] [address] Perez Tabares IG # 0.07 10e3/ul Critically high 0.00-0.03 [facility] Comment on above: Performed By: #### C BC #### [facility] [address] [place] [address] Dr. Perez Tabares IG % 0.4 % Normal 0.0-0.5 [facility] Comment on above: Performed By: #### C BC #### [facility] [address] [place] [address] Dr. Perez Tabares LYMPH # 1.9 103/ul Normal 1.2-3.8 [facility] Comment on above: Performed By: #### C BC #### [facility] [address] [address] [address] Perez Tabares Lymphocytes/100 WBC (Bld) 11.5 % Critically low 20.5-60.0 [facility] Comment on above: Performed By: #### C BC #### [facility] [address] [place] [address] Dr. Perez Tabares MANUAL DIFF REQ NO Normal [facility] Comment on above: Performed By: #### C BC #### [facility] [address] [place] [address] Dr. Perez Tabares MCH (RBC) [Entitic mass] 31.6 pg Normal 26.7-34.[address] [facility] Comment on above: Performed By: #### C BC #### [facility] [address] [place] [address] Dr. Perez Tabares MCHC (RBC) [Mass/Vol] 34.3 g/dL Normal 29.9-35.2 [facility] Comment on above: Performed By: #### C BC #### [facility] [address] [place] [address] Dr. Perez Tabares MCV (RBC) [Entitic vol] 92.1 fL Normal 81.0-99.[address] [facility] Comment on above: Performed By: #### C BC #### [facility] [address] [place] [address] Dr. Perez Tabares MONO # 0.9 103/ul Critically high 0.3-0.8 [facility] Comment on above: Performed By: #### C BC #### [facility] [address] [place] [address] Dr. Perez Tabares Monocytes/100 WBC (Bld) 5.4 % Normal 1.7-12.0 [facility] Comment on above: Performed By: #### C BC #### [facility] [address] [place] [address] Dr. Perez Tabares NEUT # 13.6 103/ul Critically high 1.4-6.5 [facility] Comment on above: Performed By: #### C BC #### [facility] [address] [place] [address] Dr. Perez Tabares Neutrophils/100 WBC (Bld) 81.4 % Critically high 43.0-75.0 [facility] Comment on above: Performed By: #### C BC #### [facility] [address] [address] [address] Perez Tabares Platelet mean volume (Bld) [Entitic vol] 11.0 fL Normal 9.5-13.5 [facility] Comment on above: Performed By: #### C BC #### [facility] [address] [address] [address] Perez Tabares PLT 191 103/ul Normal 150-450 [facility] Comment on above: Performed By: #### C BC #### [facility] [address] [place] [address] Dr. Perez Tabares RBC 3.29 106/ul Critically low 4.20-5.40 [facility] Comment on above: Performed By: #### C BC #### [facility] [address] [place] [address] Dr. Perez Tabares WBC 16.8 103/ul Critically high 4.0-11.0 [facility] Comment on above: Performed By: #### C BC #### [facility] [address] [place] [address] Dr. Perez Tabares EO # 0.3 103/ul Normal 0.0-0.7 [facility] Comment on above: Performed By: #### C BC #### [facility] [address] [place] [address] Dr. Perez Tabares Eosinophils/100 WBC (Bld) 2.8 % Normal 0.9-7.0 [facility] Comment on above: Performed By: #### C BC #### [facility] [address] [place] [address] Dr. Perez Tabares Erythrocyte distribution width (RBC) [Ratio] 13.6 % Normal 11.0-15.0 [facility] Comment on above: Performed By: #### C BC #### [facility] [address] [place] [address] Dr. Perez Tabares Hematocrit (Bld) [Volume fraction] 35.3 % Critically low 36.0-48.[address] [facility] Comment on above: Performed By: #### C BC #### [facility] [address] [place] [address] Dr. Perez Tabares Hemoglobin (Bld) [Mass/Vol] 12.4 g/dL Normal 12.0-16.0 [facility] Comment on above: Performed By: #### C BC #### [facility] [address] [address] [address] Perez Tabares IG # 0.05 10e3/ul Critically high 0.00-0.03 [facility] Comment on above: Performed By: #### C BC #### [facility] [address] [address] [address] Perez Tabares LYMPH # 1.4 103/ul Normal 1.2-3.8 [facility] Comment on above: Performed By: #### C BC #### [facility] [address] [place] [address] Dr. Perez Tabares Lymphocytes/100 WBC (Bld) 12.7 % Critically low 20.5-60.0 [facility] Comment on above: Performed By: #### C BC #### [facility] [address] [place] [address] Dr. Perez Tabares MCH (RBC) [Entitic mass] 31.5 pg Normal 26.7-34.0 [facility] Comment on above: Performed By: #### C BC #### [facility] [address] [place] [address] Dr. Perez Tabares MCHC (RBC) [Mass/Vol] 35.1 g/dL Normal 29.9-35.2 [facility] Comment on above: Performed By: #### C BC #### [facility] [address] [place] [address] Dr. Perez Tabares MCV (RBC) [Entitic vol] 89.6 fL Normal 81.0-99.0 [facility] Comment on above: Performed By: #### C BC #### [facility] [address] [place] [address] Dr. Perez Tabares Monocytes/100 WBC (Bld) 5.8 % Normal 1.7-12.0 [facility] Comment on above: Performed By: #### C BC #### [facility] [address] [place] [address] Dr. Perez Tabares NEUT # 8.9 103/ul Critically high 1.4-6.5 [facility] Comment on above: Performed By: #### C BC #### [facility] [address] [place] [address] Dr. Perez Tabares Neutrophils/100 WBC (Bld) 78.1 % Critically high 43.0-75.0 [facility] Comment on above: Performed By: #### C BC #### [facility] [address] [place] [address] Dr. Perez Tabares Platelet mean volume (Bld) [Entitic vol] 10.8 fL Normal 9.5-13.5 [facility] Comment on above: Performed By: #### C BC #### [facility] [address] [place] [address] Dr. Perez Tabares PLT 206 103/ul Normal 150-450 [facility] Comment on above: Performed By: #### C BC #### [facility] [address] [place] [address] Dr. Perez Tabares RBC 3.94 106/ul Critically low 4.20-5.40 [facility] Comment on above: Performed By: #### C BC #### [facility] [address] [place] [address] Dr. Perez Tabares WBC 11.3 103/ul Critically high 4.0-11.0 [facility] Comment on above: Performed By: #### C BC #### [facility] [address] [place] [address] Dr. Perez Tabares [facility] SARS-CoV-2 (COVID-19) RNA MORENO+probe Ql (Unsp spec) Not detected Normal NOT DETECTED [facility] Comment on above: Result Comment: When diagnostic testing is negative, the possibility of a false negative should be considered in the context of a patient's recent exposures and the presence of clinical signs and symptoms consistent with SARS-CoV-2. This test is not yet approved or cleared by the [place] FDA. When there are no FDA-approved or cleared tests available, and other criteria are met, FDA can make tests available under an emergency access mechanism called an Emergency Use Authorization (EUA). The EUA for this test is supported by the [employer] of Health and Human Service's declaration that circumstances exist to justify the emergency use of in vitro diagnostics for the detection and/or diagnosis of the virus that causes COVID-19. This EUA will remain in effect for the duration of the COVID-19 declaration justifying emergency of IVDs, unless it is terminated or revoked by the FDA (after which the test may no longer be used). Performed By: #### F IB, PT, PTT #### [facility] [address] [place] [address] Dr. Perez Tabares FIBRINOGENon 07-11-2022 FIBRINOGEN 217.0 mg/dl Normal 200.0-400.[address] [facility] Comment on above: Performed By: #### F IB, PT, PTT #### [facility] [address] [place] [address] Dr. Perez Tabares FIBRINOGEN 302.0 mg/dl Normal 200.0-400.[address] [facility] Comment on above: Performed By: #### P TT, FIB, PT #### [facility] [address] [place] [address] Dr. ePrez Tabares POINT OF CARE GLUCOSEon 07-02 Glucose [Mass/Vol] 84 mg/dL Normal 74-106 [facility] Comment on above: Performed By: #### F VPCR #### [facility] [address] [place] [address] Dr. Perez Tabares Glucose [Mass/Vol] 70 mg/dL Critically low 74-106 [facility] Comment on above: Performed By: #### F IB, PT, PTT #### [facility] [address] [place] [address] Dr. Perez Tabares PROTIMEon 07-11-2022 INR Coag (PPP) [Relative time] 1.01 {INR} Normal [facility] Comment on above: Performed By: #### F IB, PT, PTT #### [facility] [address] [place] [address] Dr. Perez Tabares INR GUIDELINES SEE BELOW Normal [facility] Comment on above: Result Comment: ARRON RED INR: 2.0 - 3.0 CONDITIONS NOT LISTED BELOW 2.5 - 3.5 FOR PROSTHETIC HEART VALVE REPLACEMENT 2.5 - 3.5 RECURRENT THROMBOSIS Performed By: #### F IB, PT, PTT #### [facility] [address] [place] [address] Dr. Perez Tabares PT Coag (PPP) [Time] 10.9 s Normal 9.0-11.6 [facility] Comment on above: Performed By: #### F IB, PT, PTT #### [facility] [address] [place] [address] Dr. Perez Tabares INR Coag (PPP) [Relative time] 0.96 {INR} Normal [facility] Comment on above: Performed By: #### P TT, FIB, PT #### [facility] [address] [place] [address] Dr. Perez Tabares INR GUIDELINES SEE BELOW Normal [facility] Comment on above: Result Comment: ARRON RED INR: 2.0 - 3.0 CONDITIONS NOT LISTED BELOW 2.5 - 3.5 FOR PROSTHETIC HEART VALVE REPLACEMENT 2.5 - 3.5 RECURRENT THROMBOSIS Performed By: #### P TT, FIB, PT #### [facility] [address] [place] [address] Dr. Perez Tabares PT Coag (PPP) [Time] 10.4 s Normal 9.0-11.6 [facility] Comment on above: Performed By: #### P TT, FIB, PT #### [facility] [address] [place] [address] Dr. Perez Tabares PTTon 07-11-2022 aPTT Coag (Bld) [Time] 29.2 s Normal 22.3-36.2 [facility] Comment on above: Performed By: #### F IB, PT, PTT #### [facility] [address] [place] [address] Dr. Perez Tabares aPTT Coag (Bld) [Time] 26.6 s Normal 22.3-36.2 [facility] Comment on above: Performed By: #### P TT, FIB, PT #### [facility] [address] [address] [address] Perez Tabares TYPE AND SCREENon 07-11-2022 TYPE AND SCREEN Negative Normal [facility] Comment on above: Performed By: #### F VPCR #### [facility] [address] [address] [address] Perez Tabares US PREG AMNIOTIC FLUID VOLUM Yvan 07-05-2022 US PREG AMNIOTIC FLUID VOLUME EXAMINATION: US PREG AMNIOTIC FLUID VOLUME HISTORY: Gestational diabetes mellitus COMPARISON: Ultrasound amniotic fluid volume 06/27/2022 TECHNIQUE: Limited sonographic examination for amniotic fluid volume FINDINGS: Presentation: Cephalic ESTEFANY: 18.1 cm (between fifth and 95th percentile) Heart rate: 151 bpm GA: 37 weeks, 2 days BENNY: 07/23/2022 IMPRESSION: 1. Normal amniotic fluid volume, slightly increased since prior study. Electronically authenticated by: MANISHA PATIÑO Date: 2022-07-05 16:[address] [facility] GLYCOHEMOGLOBIN A1Con 2021 ADA RECOMMENDATION SEE BELOW Normal [facility] Comment on above: Result Comment: ADA RECOMMENDED LIMIT 4.0 - 6.0 ADA THERAPEUTIC TARGET < 7.0 ACTION SUGGESTED > 7.0 Performed By: #### C BC #### [facility] [address] [address] [address] Perez Tabares Glucose [Mass/Vol] 94 mg/dL Normal [facility] Comment on above: Performed By: #### C BC #### [facility] [address] [address] [address] Perez Tabares HbA1c (Bld) [Mass fraction] 4.9 % Normal 4.5-6.[address] [facility] Comment on above: Performed By: #### C BC #### [facility] [address] [address] [address] Perez Tabares US PREG AMNIOTIC FLUID VOLUM Yvan 06-28-2022 US PREG AMNIOTIC FLUID VOLUME EXAMINATION: US PREG AMNIOTIC FLUID VOLUME HISTORY: Gestational diabetes mellitus COMPARISON: Ultrasound growth 06/26/2022 TECHNIQUE: Limited sonographic examination for amniotic fluid volume FINDINGS: Presentation: Cephalic ESTEFANY: 13.6 cm (between fifth and 95th percentile) Heart rate: 149 bpm GA: 36 weeks, 2 days BENNY: 07/23/2022 IMPRESSION: 1. Single live intrauterine . 2. ESTEFANY 13.6 cm; unchanged compared to 06/26/2022. Electronically authenticated by: MANISHA PATIÑO Date: 2022-06-28 16:[address] [facility] GROUP B STREP CULTUREon 06-02 S. agalactiae Ag Ql (Unsp spec) Culture Observations: NEGATIVE FOR GROUP B STREPTOCOCCUS. Normal [facility] Comment on above: Performed By: #### F VPCR #### [facility] [address] [place] [address] Dr. Perez Tabares US PREG GROWTHon 06-26-2022 US PREG GROWTH EXAMINATION: US PREG GROWTH HISTORY: Gestational diabetes mellitus COMPARISON: Ultrasound anatomy 03/12/2022 FINDINGS: Heart Rate: 142.0 bpm Number: 1.0 Position: BREECH OBL Amniotic Fluid Volume: 13.6 cm Maximum Vertical Pocket: 4.1 cm BIOMETRY: BPD: 8.4 cm cm; 34 weeks 0 days; 8% HC: 32.1 cmcm; 36 weeks 1 days; 21% AC: 32.7 cm cm; 36 weeks 4 days; 72% FL: 7.0 cm cm; 35 weeks 5 days; 36% EFW: 2827.5 grams; 48% FL/AC: 21.4 FL/BPD: 82.7 HC/AC: 1.0 GESTATIONAL AGE: Age by EDC: 36 weeks 1 days BENNY by EDC: 07/23/2022 Age by US: 35 weeks, 4 days BENNY by US: 07/27/2022 IMPRESSION: 1. Single live intrauterine with growth detailed above. 2. Testicular hydroceles; small amount of fluid within scrotal sac of uncertain clinical significance. Electronically authenticated by: MANISHA PATIÑO Date: 2022-06-26 16:35 Normal [facility] US PREG AMNIOTIC FLUID VOLUM Yvan 06-20-2022 US PREG AMNIOTIC FLUID VOLUME EXAMINATION: US PREG AMNIOTIC FLUID VOLUME HISTORY: Gestational diabetes mellitus COMPARISON: Ultrasound amniotic fluid volume 06/13/2022 TECHNIQUE: Limited sonographic examination for amniotic fluid volume FINDINGS: Presentation: Cephalic ESTEFANY: 19.4 cm (between fifth and 95th percentile) Heart rate: 156 bpm GA: 35 weeks, 2 days BENNY: 07/23/2022 IMPRESSION: 1. Single live intrauterine . 2. Normal amniotic fluid volume; increased since prior study. Electronically authenticated by: MANISHA PATIÑO Date: 2022-06-20 20:[address] [facility] US PREG AMNIOTIC FLUID VOLUM Yvan 06-14-2022 US PREG AMNIOTIC FLUID VOLUME EXAMINATION: US PREG AMNIOTIC FLUID VOLUME HISTORY: Gestational diabetes mellitus COMPARISON: 06/06/2022 TECHNIQUE: Limited sonographic examination for amniotic fluid volume FINDINGS: position: Cephalic presentation, longitudinal lie Amniotic fluid volume: 14.2 cm, normal 7.1-27.8 cm Largest fluid pocket: 5.7 cm Heart rate: 139 bpm Gestational age: 34 weeks 2 IMPRESSION: Normal amniotic fluid volume Electronically authenticated by: SHELLEY AWAD Date: 2022-06-14 18:[address] [facility] US PREG AMNIOTIC FLUID VOLUM Yvan 06-07-2022 US PREG AMNIOTIC FLUID VOLUME EXAMINATION: US PREG AMNIOTIC FLUID VOLUME HISTORY: Gestational diabetes mellitus COMPARISON: Ultrasound amniotic fluid volume 05/30/2022 TECHNIQUE: Limited sonographic examination for amniotic fluid volume FINDINGS: Presentation: Cephalic ESTEFANY: 11.8 cm (between fifth and 95th percentile); deepest pocket 4.3 cm. Heart rate: 161 bpm IMPRESSION: 1. Normal amniotic fluid volume; increased since prior study. Electronically authenticated by: MANISHA PATIÑO Date: 2022-06-07 16:[address] [facility] GLYCOHEMOGLOBIN A1Con 2021 ADA RECOMMENDATION SEE BELOW [facility] Comment on above: Result Comment: ADA RECOMMENDED LIMIT 4.0 - 6.0 ADA THERAPEUTIC TARGET < 7.0 ACTION SUGGESTED > 7.0 Performed By: #### F IB, PT, PTT #### [facility] [address] [address] [address] Perez Tabares Glucose [Mass/Vol] 88 mg/dL Normal [facility] Comment on above: Performed By: #### F IB, PT, PTT #### [facility] [address] [place], [place] [address] Dr. Perez Tabares HbA1c (Bld) [Mass fraction] 4.7 % Normal 4.5-6.[address] [facility] Comment on above: Performed By: #### F IB, PT, PTT #### [facility] [address] [address] [address] Perez Tabares US PREG AMNIOTIC FLUID VOLUM Yvan 05-31-2022 US PREG AMNIOTIC FLUID VOLUME EXAMINATION: US PREG AMNIOTIC FLUID VOLUME HISTORY: Maternal hypertension COMPARISON: 03/12/2022 TECHNIQUE: Limited sonographic examination for amniotic fluid volume FINDINGS: position: Cephalic presentation, longitudinal lie Amniotic fluid volume: 13.2 cm. Normal range 7.6 to 27.0 cm Largest fluid pocket: 7.3 cm Heart rate: 160 bpm Gestational age: 32 weeks 2 days IMPRESSION: Normal amniotic fluid volume Electronically authenticated by: SHELLEY AWAD Date: 2022-05-31 07:[address] [facility] GLYCOHEMOGLOBIN A1Con 2021 ADA RECOMMENDATION SEE BELOW Normal [facility] Comment on above: Result Comment: ADA RECOMMENDED LIMIT 4.0 - 6.0 ADA THERAPEUTIC TARGET < 7.0 ACTION SUGGESTED > 7.0 Performed By: #### C BC #### [facility] [address] [place] [address] Dr. Perez Tabares Glucose [Mass/Vol] 94 mg/dL Normal [facility] Comment on above: Performed By: #### C BC #### [facility] [address] [place] [address] Dr. Perez Tabares HbA1c (Bld) [Mass fraction] 4.9 % Normal 4.5-6.[address] [facility] Comment on above: Performed By: #### C BC #### [facility] [address] [address] [address] Perez Tabares GLUCOSE - 1HRon 04-07-2022 Glucose [Mass/Vol] 195 mg/dL Critically high 74-106 [facility] Comment on above: Performed By: #### F IB, PT, PTT #### [facility] [address] [place] [address] Dr. Perez Tabares HEMOGRAM AND PLATELon 2021 Hematocrit (Bld) [Volume fraction] 35.4 % Critically low 36.0-48.[address] [facility] Comment on above: Performed By: #### F IB, PT, PTT #### [facility] [address] [place] [address] Dr. Perez Tabares Hemoglobin (Bld) [Mass/Vol] 11.8 g/dL Critically low 12.0-16.0 [facility] Comment on above: Performed By: #### F IB, PT, PTT #### [facility] [address] [place] [address] Dr. Perez Tabares MCH (RBC) [Entitic mass] 31.1 pg Normal 26.7-34.0 [facility] Comment on above: Performed By: #### F IB, PT, PTT #### [facility] [address] [place] [address] Dr. Perez Tabares MCHC (RBC) [Mass/Vol] 33.3 g/dL Normal 29.9-35.2 [facility] Comment on above: Performed By: #### F IB, PT, PTT #### [facility] [address] [place] [address] Dr. Perez Tabares MCV (RBC) [Entitic vol] 93.2 fL Normal 81.0-99.0 [facility] Comment on above: Performed By: #### F IB, PT, PTT #### [facility] [address] [place] [address] Dr. Perez Tabares PLT 232 103/ul Normal 150-450 [facility] Comment on above: Performed By: #### F IB, PT, PTT #### [facility] [address] [place] [address] Dr. Perez Tabares RBC 3.80 106/ul Critically low 4.20-5.40 [facility] Comment on above: Performed By: #### F IB, PT, PTT #### [facility] [address] [place] [address] Dr. Perez Tabares WBC 8.4 103/ul Normal 4.0-11.0 [facility] Comment on above: Performed By: #### F IB, PT, PTT #### [facility] [address] [place] [address] Dr. Perez Tabares LAB TESTINGon 03-24-2022 RECV HEADER SEE SCANNED REPORT I N HPF Normal [facility] Comment on above: Performed By: #### F IB, PT, PTT #### [facility] [address] [address] [address] Perez Tabares REV FROM REF LAB 03/31/22 Normal [facility] Comment on above: Performed By: #### F IB, PT, PTT #### [facility] [address] [address] [address] Perez Tabares SENT TO REF LAB 03/24/22 Normal [facility] Comment on above: Performed By: #### F IB, PT, PTT #### [facility] [address] [address] [address] Perez Tabares FACTOR V LEIDEN MUTATION BRITTANI LYSISon 03-19-2022 Factor V Leiden Comment Abnormal [facility] Comment on above: Result Comment: Resu lt: c.1601G>A (p.[id number]) - Detected, Heterozygous . This result is associated with a 6- to 8-fold increased risk for venous thromboembolism. See Additional Clinical Information and Comments. Additional Clinical Information: Venous thromboembolism is a multifactorial disease influenced by genetic, environmental, and circumstantial risk factors. The c.1601G>A (p. Ewk491Pns) variant in the F5 gene, commonly referred to as Factor V Leiden, is a genetic risk factor for venous thromboembolism. Heterozygous carriers of this variant have a 6- to 8-fold increased risk for venous thromboembolism. Individuals homozygous for this variant (ie, with a copy of the variant on each chromosome) have an approximately 80-fold increased risk for venous thromboembolism. Individuals who carry both a c.*97G>A variant in the F2 gene and Factor V Leiden have an approximately 20-fold increased risk for venous thromboembolism. Risks are likely to be even higher in more complex genotype combinations involving the F2 c.*97G>A variant and Factor V Leiden (PMID: 95682501). Additional risk factors include but are not limited to: deficiency of protein C, protein S, or antithrombin III, age, male sex, personal or family history of deep vein thromboembolism, smoking, surgery, prolonged immobilization, malignant neoplasm, tamoxifen treatment, raloxifene treatment, oral contraceptive use, hormone replacement therapy, and . Management of thrombotic risk and thrombotic events should follow established guidelines and fit the clinical circumstance. This result cannot predict the occurrence or recurrence of a thrombotic event. . Comment: Genetic counseling is recommended to discuss the potential clinical implications of positive results, as well as recommendations for testing family members. . Genetic Coordinators are available for health care providers to discuss results at [phone]). . Test Details: Variant Analyzed: c.1601G>A (p. [id number]), referred to as Factor V Leiden . Methods/Limitations: DNA analysis of the F5 gene (NM_000130.5) was performed by PCR amplification followed by restriction enzyme analysis. The diagnostic sensitivity is >99%. Results must be combined with clinical information for the most accurate interpretation. Molecular-based testing is highly accurate, but as in any laboratory test, diagnostic errors may occur. False positive or false negative results may occur for reasons that include genetic variants, blood transfusions, bone marrow transplantation, somatic or tissue-specific mosaicism, mislabeled samples, or erroneous representation of family relationships. . This test was developed and its performance characteristics determined by [facility]. It has not been cleared or approved by the Food and Drug Administration. . References: Sierra S, Amna MARQUEZ, Toi R, Darío WW, Ti JH; ACMG Professional Practice and Guidelines Committee. Addendum: [employer] consensus statement on factor V Leiden mutation testing. Елена Med. 2020Feb 03. doi: 10.1038/m67606-176-06614-m. PMID: 88913047. . Mandi TATUM. Factor V Leiden Thrombophilia. 1998April 14 [Updated 2017Dec 05]. In: Julito MP, Ana HH, Scar RA, et al., editors. Kermit(R) [Internet]. [place] ([place]): [facility]; 0734-4342. Available from: https://www.ncbi.nlm.nih.gov/books/ZMQ5319/ . Eusebio Almanza, Amna MARQUEZ, Shaheen X, Radames B, Surendra EB, Renay P, Ryan CS; [employer] Laboratory Coal Deliverer Committee. Venous thromboembolism laboratory testing (factor V Leiden and factor II c.*97G>A), 2018 update: a technical standard of the [employer] and [employer] (ACMG). Елена Med. 2018 Nov;20(12):0353-2957. doi: 10.1038/r73707-878-8978-z. Epub 2017Sep 05. PMID: 39490495. . Sandy Solorio, PhD, FACMG Joseph Contreras, PhD, FACMG To Mccormick, PhD, FACMG Austin Snyder, PhD, FACMG Cristobal Morris, PhD, FACMG Yessy Carrera, PhD, FACMG Monserrat Rojas, PhD, FACMG Performed By: #### F [facility] #### [facility] [address] [place] [address] Dr. Perez Tabares US PREG ANATOMY SINGLEon US PREG ANATOMY SINGLE EXAMINATION: US PREG ANATOMY SINGLE HISTORY: anatomy study COMPARISON: No relevant comparison available. TECHNIQUE: Transabdominal sonographic examination was performed for obstetrical and evaluation. FINDINGS: Number: 1 Heart Rate: 166.0 bpm H.B. /min Amniotic Fluid Volume: Subjectively normal Placental Location: ANT/FUND with lower margin 5.1 cm from os. Cervix Length: 4.6 cm; closed. ANATOMY: Normal Structures -cerebellum, choroid plexus, cisterna magna, lateral cerebral ventricles, orbits, midline falx, hard palate, four-chamber heart, RVOT, LVOT, stomach, kidneys, bladder, umbilical cord insertion into abdomen, three-vessel cord, cervical spine, thoracic spine, lumbar spine, sacral spine, right upper extremity, left upper extremity, right lower extremity, left lower extremity. SUBOPTIMALLY SEEN: None ABNORMALITIES: None BIOMETRY: BPD: 4.7 cm 20 weeks 1 days HC: 18.1 cm 20 weeks 3 days AC: 15.3 cm 20 weeks 4 days FL: 3.4 cm 20 weeks 4 days EFW:360.2 grams; 22% FL/AC: 22.1 FL/BPD: 72.2 HC/AC: 1.2 GESTATIONAL AGE: Age by EDC: 21 weeks 0 days BENNY by EDC: 07/23/2022 Age by current US: 20 weeks 3 days BENNY by current US: 07/27/2022 IMPRESSION: 1. Single live intrauterine with growth detailed above. Electronically authenticated by: MANISHA PATIÑO Date: 2022-03-12 15:[address] [facility] Vital Signs Date Time Vital Sign Value Performing Clinician Catrachita cordoba 12-04-2023 11:31-0500 Body height 157.5 cm Alistair Zavala USER INTERFACE DESIGNER-[employer] DEPARTMENT SUPERVISOR Work Phone: [employer] 12-04-2023 11:31-0500 Body mass index (BMI) [Ratio] 33.47 kg/m2 Alistair Zavala USER INTERFACE DESIGNER-[employer] DEPARTMENT SUPERVISOR Work Phone: [employer] 12-04-2023 11:31-0500 Body weight 83.01 kg Alistairshey Zavala USER INTERFACE DESIGNER-[employer] DEPARTMENT SUPERVISOR Work Phone: [employer] 12-04-2023 11:31-0500 Diastolic blood pressure 78 mm[Hg] larala.[email or web address] USER INTERFACE DESIGNER-[employer] DEPARTMENT SUPERVISOR Work Phone: [employer] 12-04-2023 11:31-0500 Systolic blood pressure 137 mm[Hg] larala.[email or web address] USER INTERFACE DESIGNER-[employer] DEPARTMENT SUPERVISOR Work Phone: [employer] Encounters Encounter Date Encounter Type Care Provider Facility Start: 09-17-2024 End: 09-17-2024 Clinisync Result Encounter Lee Ann Emmanuel DO Work Phone: [facility] Unsolicited Start: 09-17-2024 End: 09-17-2024 Clinisync Result Encounter Lee Ann Emmanuel DO Work Phone: [facility] External Department Unsolicited Start: 03-25-2024 End: 03-25-2024 ambulatory KLINE FAWWAD Not Available Start: 02-20-2024 End: 02-20-2024 ambulatory LEE ANN EMMANUEL Not Available Start: 01-29-2024 End: 01-29-2024 ambulatory KLINE FAWWAD Not Available Start: 12-23-2023 Patient encounter status Lee Ann Emmanuel DO Work Phone: [facility] Work Phone: Start: 12-23-2023 End: 12-23-2023 ambulatory SHAIKH MAGALI Not Available Start: 12-04-2023 End: 12-04-2023 ambulatory [facility] Start: 12-04-2023 End: 12-04-2023 Postop follow up visit related to original px Alistair Zavala USER INTERFACE DESIGNER-[employer] DEPARTMENT SUPERVISOR Work Phone: [facility] Comment on above: Status post laparosc opic appendectomy (Primary Dx) Start: 12-03-2023 End: 12-03-2023 [facility] Start: 02-19-2023 End: 02-19-2023 ambulatory SHAIKH Filippo CEBALLOS Facility:[facility]1 Start: 02-19-2023 End: 02-20-2023 ambulatory SHAIKH Filippo CEBALLOS Facility:[facility] Start: 10-16-2022 End: 10-17-[address] JEOVANNY RCIH . Facility:[facility] Start: 07-23-2022 Evaluation and management of inpatient DR JEOVANNY RICH . Facility:[facility] Start: 07-20-2022 End: 07-20-[address] NONE LISTED REQUEST Facility:[facility]1 Start: 07-11-2022 ambulatory NONE LISTED REQUEST Facility:[facility]1 Start: 07-11-2022 End: 07-14-2022 Evaluation and management of inpatient DR LEE ANN BENITEZ . Facility:[facility] Start: 07-04-2022 End: 07-04-2022 ambulatory NONE LISTED REQUEST Facility:[facility]1 Start: 06-30-2022 End: 07-01-[address] JEOVANNY RICH . Facility:[facility] Start: 06-27-2022 End: 06-27-[address] JEOVANNY RICH . Facility:[facility] Start: 06-26-2022 End: 06-26-[address] JEOVANNY RICH . Facility:[facility] Start: 06-26-2022 End: 06-27-[address] JEOVANNY RICH . Facility:[facility] Start: 06-20-2022 End: 06-20-[address] LEE ANN BENITEZ . Facility:[facility] Start: 06-13-2022 End: 06-13-[address] LEE ANN BENITEZ . Facility:[facility] Start: 06-06-2022 End: 06-06-[address] JEOVANNY RICH . Facility:[facility] Start: 06-02-2022 End: 06-03-[address] JEOVANNY RICH . Facility:[facility] Start: 05-30-2022 End: 05-30-[address] LEE ANN BENITEZ . Facility:[facility] Start: 05-05-2022 End: 05-06-[address] JEOVANNY RICH . Facility:[facility] Start: 04-07-2022 End: 04-08-[address] JEOVANNY RICH . Facility:[facility] Start: 03-24-2022 End: 03-25-[address] DOCTOR REINOSO Facility:[facility]1 Start: 03-12-2022 End: 03-13-[address] JEOVANNY RICH . Facility:[facility] Start: 03-10-2022 End: 03-11-[address] DOCTOR REINOSO Facility:[facility] Procedures Date Procedure Procedure Detail Performing Clinician Start: 09-17-2024 ALL T3 FREE Lee Ann Fazi o DO Work Phone: Start: 09-17-2024 ALL THYROID STIM HORMONE Lee Ann Emmanuel DO Work Phone: Start: 09-17-2024 ALL THYROXINE (T4) Core y Emmanuel DO Work Phone: Start: 09-17-2024 [facility] GLUCOSE BLOOD Lee Ann Emmanuel DO Work Phone: Start: 01-29-2024 H/O: hysterectomy Status post hysterectomy Lee Ann Emmanuel DO Work Phone: Start: 12-23-2023 History of appendectomy S/P ap pendectomy, follow-up exam Lee Ann Emmanuel DO Work Phone: Start: 12-03-2023 End: 12-03-2023 Ophth medical xm&eval compre new pt 1/> vst Myopia of both eyes Kodi Almanza Obrock OD Work Phone: Comment on above: Myopia of both eyes (Primary Dx); Physiologic anisocoria Start: 07-11-2022 Resection of Bilater al Fallopian Tubes, Open Approach DR DOCTOR REINOSO Start: 07-11-2022 Resection of Uterus, Supracervical, Open Approach DR DOCTOR REINOSO Start: 07-11-2022 Delivery of Products of Conception, External Approach DR DOCTOR REINOSO Start: 07-11-2022 Drainage of Amniotic Fluid, Therapeutic from Products of Conception, Via Natural or Artificial Opening DR DOCTOR REINOSO Start: 07-11-2022 Introduction of Othe r Hormone into Peripheral Vein, Percutaneous Approach DR DOCTOR REINOSO Start: 07-11-2022 Repair Perineum Skin , External Approach DR DOCTOR REINOSO Start: 07-11-2022 Transfusion of Nonautologous Red Blood Cells into Peripheral Vein, Percutaneous Approach DR DOCTOR REINOSO Start: 07-18-2015 Microscopic observat ion [Identifier] in Cervix by Cyto stain Kodi Montenegro OD Work Phone: Plan of Treatment Date Care Activity Detail Author Start: 02-25-2025 End: 02-25-2025 Patient encounter procedure 02/25/2025 10:00 AM EDT Office Visit [facility] [address] [place] [address] Lee Ann Benitez, DO [address] [place] [address] [facility] Start: 12-07-2024 End: 12-07-2024 Patient encounter procedure 12/07/2024 10:20 AM EST Office Visit [facility] [address] [place] [address] Kodi Montenegro OD [address] [place] [address] [facility] Start: 12-04-2024 Adult BMI Screening Adult BMI Screen ing [facility] Start: 12-04-2024 Tobacco Screening Tobacco Screening [facility] Start: 12-03-2024 Tobacco Screening Tobacco Screening [facility] Start: 11-10-2024 Adult BMI Screening Adult BMI Screen ing [facility] Start: 09-21-2024 End: 09-21-2024 Patient encounter procedure 09/21/2024 9:50 AM EDT Office Visit [facility] [address] [place] [id number] Lee Ann Benitez DO [address] [place] [address] [facility] Start: 08-02-2024 Influenza vaccination Influenza Vacc ine (#1) [facility] Start: 12-04-2023 End: 12-04-2023 Patient encounter procedure 12/04/2023 11:30 AM EST Office Visit [facility] [address] [place] [id number] Alistair Zavala, USER INTERFACE DESIGNER-[facility] [address] [place], [place] [id number] [facility] Start: 08-02-2023 Influenza vaccination Influenza Vacc ine [facility] Start: 07-18-2018 Screening for malign ant neoplasm of cervix Pap Smear [facility] Start: 2003 DTaP,Tdap and Td Vaccines (1 - Tdap) DTaP,Tdap and Td Vaccines (1 - Tdap) [facility] Start: 2002 Adult BMI Follow Up Plan Adult BMI Follow Up Plan [facility] Start: 1996 [facility] Date Payer Category Payer Medicaid [id number] 2023 Medicaid [id number] 1984 Unknown [id number] 2.16.84 0.1.233721.3.579.2.593 1984 Unknown [id number] 2.16.84 0.1.722952.3.579.2.593 1984 Unknown [id number] 2.16.84 0.1.268426.3.579.2.593 1984 Unknown [id number] 2.16.84 0.1.525596.3.579.2.593 1984 Unknown [id number] 2.16.84 0.1.620396.3.579.2.593 1984 Unknown [id number] 2.16.84 0.1.307612.3.579.2.593 1984 Unknown [id number] 2.16.84 0.1.568004.3.579.2.593 1984 Unknown [id number] 2.16.84 0.1.066703.3.579.2.593 1984 Unknown [id number] 2.16.84 0.1.027580.3.579.2.593 1984 Unknown [id number] 2.16.84 0.1.672311.3.579.2.593 1984 Unknown [id number] 2.16.84 0.1.434413.3.579.2.593 1984 Unknown [id number] 2.16.84 0.1.634299.3.579.2.593 1984 Unknown [id number] 2.16.84 0.1.469550.3.579.2.593 1984 Unknown [id number] 2.16.84 0.1.131801.3.579.2.593 1984 Unknown [id number] 2.16.84 0.1.562577.3.579.2.593 1984 Unknown [id number] 2.16.84 0.1.050411.3.579.2.593 1984 Unknown [id number] 2.16.84 0.1.530072.3.579.2.593 1984 Unknown [id number] 2.16.84 0.1.939088.3.579.2.593 1984 Unknown [id number] 2.16.84 0.1.493026.3.579.2.593 1984 Unknown [id number] 2.16.84 0.1.602557.3.579.2.593 1984 Unknown [id number] 2.16.84 0.1.499165.3.579.2.593 1984 Unknown [id number] 2.16.84 0.1.039993.3.579.2.593 1984 Unknown [id number] 2.16.84 0.1.994888.3.579.2.593 1984 Unknown [id number] 2.16.84 0.1.186737.3.579.2.1286 1984 Unknown [id number] 2.16.84 0.1.935649.3.579.2.1286 1984 Unknown [id number] 2.16.84 0.1.733908.3.579.2.1259 1984 Unknown [id number] 2.16.84 0.1.457469.3.579.2.1259 1984 Unknown [id number] 2.16.84 0.1.715206.3.579.2.1259 1984 Unknown [id number] 2.16.84 0.1.288627.3.579.2.1259 1959 Unknown [id number] Social History Date Type Detail Facility Start: 11-10-2023 End: 01-29-2024 Tobacco smoking status NHIS Never smoked tobacco [facility] Start: 11-10-2023 End: 01-29-2024 Tobacco use and exposure Smokeless tobacco non-user [facility] Start: 12-03-2023 End: 03-25-2024 History of Social function [facility] Start: 12-03-2023 End: 03-25-2024 Tobacco use panel [facility] Housing Instability Unknown [facility] Start: 1985 Sex Assigned At Female P [facility] Start: 11-10-2023 Gender identity Identifies as female gender (finding) [facility] Start: 11-10-2023 Sexual orientation Heterosexual (fin ding) [facility] Start: 12-04-2023 End: 03-25-2024 Alcohol intake Lifetime non-drinker (finding) [facility] Start: 1985 Sex assigned at Not on file [facility] NEGATED: Highlighted rowStart: NINF History of tobacco use Passive smoker [facility] History of Present illness Narrative 12-04-2023 ARIANNA Diggs - 12/04/2023 11:30 AM EST Note Date & Type Note Facility 12-04-2023 History of Presen t illness Narrative Images from the original note were not included. Subjective Ronan Peng is a 38 y.o. female status post laparoscopic appendectomy on 11/10/2023. She has no concerns. Pain is tolerable. She states this surgery was much easier than her hysterectomy. She denies any nausea or vomiting. She is tolerating oral intake. She denies any fevers or chills. She is having bowel function. Objective Vitals: 12/04/23 1131 BP: 137/78 Physical Exam Constitutional: Appearance: Normal appearance. She is obese. Abdominal: General: Bowel sounds are normal. There is no distension. Palpations: Abdomen is soft. Tenderness: There is no abdominal tenderness. There is no guarding. Comments: Lap sites clean, dry and intact without signs of infection. Skin: General: Skin is warm and dry. Findings: No bruising or erythema. Neurological: Mental Status: She is alert. Assessment Ronan Peng is a 38 y.o.female postop laparoscopic appendectomy. Plan Final pathology discussed and given to patient in office today. No heavy lifting for 3 more weeks. Follow-up as needed. Status post laparoscopic appendectomy [Z90.49] ARIANNA DIGGS [facility] [place] This note was created with the assistance of a speech recognition program. While intending to generate a timely document that accurately reflects the content of the visit, no guarantee can be provided that every grammatical or spelling mistake has been or will be identified or corrected. Thank you for your understanding. ARIANNA Diggs 12/04/23 1149 documented in this encounter [facility] History of Present illness Narrative 12-03-2023 Kodi Montenegro OD - 12/03/2023 10:20 AM EST Note Date & Type Note Facility 12-03-2023 History of Presen t illness Narrative Ronan Peng 1985 Diagnosis: 1. Myopia of both eyes 2. Physiologic anisocoria Assessment/Plan: Updated glasses Rx given to patient today. Follow Up: Return for 1 year comprehensive exam. Chief Complaint: Ronan Peng had concerns including Blurred Vision. HPI Blurred Vision In both eyes. Onset was gradual. Vision is blurred. Severity is moderate. Occurring constantly. It is worse throughout the day. Context: distance vision. Since onset it is stable. Treatments tried include glasses (CL's). Response to treatment was significant improvement. Comments New patient presenting for complete exam. Previously seen by office in [place]. Patient does have interest in CL's, is a current wearer. (Acuvue bi-weekly's) Last edited by Alistair Guardado on 12/03/2023 10:33 AM. ROS Positive for: Eyes, Psychiatric Last edited by Alistair Guardado on 12/03/2023 10:15 AM. No current outpatient medications on file. (Ophthalmic Drugs) No current facility-administered medications for this visit. (Ophthalmic Drugs) Current Outpatient Medications (Other) Medication Sig sertraline (ZOLOFT) 50 mg tablet Take 1 tablet (50 mg total) by mouth in the morning. ibuprofen (MOTRIN) 800 mg tablet Take 1 tablet (800 mg total) by mouth every 8 (eight) hours as needed for pain or fever. (Patient not taking: Reported on 12/03/2023) oxyCODONE-acetaminophen (PERCOCET) 5-325 mg per tablet Take 1 tablet by mouth every 6 (six) hours as needed for pain for up to 8 doses. Max Daily Amount: 4 tablets (Patient not taking: Reported on 12/03/2023) No current facility-administered medications for this visit. (Other) Ms. Peng has a past medical history of Ovarian cyst. She has a past surgical history that includes Tonsillectomy; Adenoidectomy; Hysterectomy; and Appendectomy (N/A, 11/10/2023). Base Eye Exam Visual Acuity (Snellen - Linear) Right Left Both Dist cc 20/20-1 20/20-2 20/20 Near cc J1 J1+ J1+ Correction: Glasses Tonometry (Applanation, 11:30 AM) Right Left Pressure 16 16 Pupils Light Shape React APD Right 2.5 Round 2 None Left 2 Round 2 None Right pupil slightly larger Visual Dobson (Counting fingers) Right Left Full Full Extraocular Movement Right Left Full, Ortho Full, Ortho Neuro/Psych Oriented x3: Yes Mood/Affect: Normal Dilation Both eyes: 1.0% Tropicamide @ 10:42 AM Additional Tests Color Right Left Ishihara 07/09 88 Keratometry (Automated) K1 [place] K2 [place] Right 46.25 004 47.00 094 Left 46.50 174 48.00 084 Stereo Fly: + Circles: 08/10 Slit Lamp and Fundus Exam External Exam Right Left External Normal Normal Slit Lamp Exam Right Left Lids/Lashes Normal Normal Conjunctiva/Sclera White and quiet White and quiet Cornea Clear Clear Anterior Chamber Deep and quiet Deep and quiet Iris Round and reactive Round and reactive Lens Clear Clear Fundus Exam Right Left Vitreous Normal Normal Disc Normal Normal C/D Ratio Vertical 0.1 0.1 C/D Ratio Horizontal 0.1 0.1 Macula Normal Normal Vessels Normal Normal Periphery Normal Normal Refraction Wearing Rx Sphere Cylinder [place] Right -7.25 +0.75 104 Left -7.75 +1.25 080 Age: 2+ years Type: SVL Manifest Refraction (Auto) Sphere Cylinder [place] Dist [place] Right -7.25 +1.00 106 Left -8.00 +1.50 079 Manifest Refraction #2 Sphere Cylinder [place] Dist VA Right -7.50 +0.50 110 20/20 Left -8.50 +1.25 080 20/20 Final Rx Sphere Cylinder [place] Dist VA Right -7.50 +0.50 110 20/20 Left -8.50 +1.25 080 20/20 Type: SVL Expiration Date: 12/03/2025 Contact Lens Exam Current Contact Lens Rx (Trial Lens) Sphere Cylinder [place] Right -6.50 -0.50 020 Left -6.75 -1.00 170 Keratometry (Automated) K1 [place] K2 [place] Right 46.25 004 47.00 094 Left 46.50 174 48.00 084 Scribe Statement: Scribed for and in the presence of Kodi Montenegro OD by LOLA Krishnamurthy. Provider Statement: I Kodi Montenegro OD personally performed the services described in the documentation, as scribed by LOLA Krishnamurthy in my presence, and it is both accurate and complete. documented in this encounter [facility] Evaluation note Note Date & Type Note Facility Evaluation note Diagnosis Myopia of both eyes- Primary Physiologic anisocoria Anisocoria documented in this encounter [facility] Evaluation note Note Date & Type Note Facility Evaluation note Diagnosis Status post laparoscopic appendectomy- Primary Other postprocedural status documented in this encounter [facility] Instructions Attachments Note Date & Type Note Facility Instructions The following attachments cannot be sent through Care Everywhere.Nearsightedness (Bulgarian)documented in this encounter [facility] Instructions Note Date & Type Note Facility Instructions Not on filedocumented in this en counter [facility] Summary Purpose Family History No Family History Records FoundNo Family History Records FoundNo Family History Records FoundNo Family History Records Found Advance Directives No Advanced Directives Records FoundNo Advanced Directives Records FoundNo Advanced Directives Records FoundNo Advanced Directives Records Found Additional Source Comments INFORMATION SOURCE (unrecogn ized section and content) DATE CREATED AUTHOR 03/01/2023 [facility] DATE CREATED AUTHOR AUTHOR'S ORGANIZ ATION 11/20/2023 [facility] DATE CREATED AUTHOR AUTHOR'S ORGANIZ ATION 12/08/2023 [facility] DATE CREATED AUTHOR AUTHOR'S ORGANIZ ATION 03/26/2024 [facility] EPIC Reason for Visit (unrecogniz ed section and content) Reason Comments Blurred Vision Reason Comments POST-OP VISIT POST OP LAPAROSCOPIC APPENDECTOMY PERFORMED 11/10/23 AT [facility] Care Teams (unrecognized sec tion and content) Senior [employer]ol Developer Relationship Specialty Start Date End Date Shaikh Ceballos MD [facility] [place] [address] [place] [address] PCP - General Internal Medicine 11/10/23 Senior [employer] Developer Relationship Specialty Start Date End Date Shaikh Ceballos MD [address] [place] [address] PCP - General Internal Medicine 11/10/23 Senior [employer] Developer Relationship Specialty Start Date End Date Danay Melchor MD PCP - External PCP Physician Food Quality Tester 12/16/23 Shaikh Ceballos MD [address] [place] [address] PCP - General Internal Medicine 12/23/23 Shaikh Ceballos MD Referring Physician Internal Medicine 12/16/23 FOR RECORDS PERTAINING TO PATIENTS WHO ARE OR HAVE BEEN ENROLLED IN A CHEMICAL DEPENDENCY/SUBSTANCEABUSE PROGRAM, SOME INFORMATION MAY BE OMITTED. This clinical summary was aggregated from multiple sources. Caution should be exercised in using it in the provision of clinical care. This summary normalizes information from multiple sources, and as a consequence, information in this document may materially change the coding, format and clinical context of patient data. In addition, data may be omitted in some cases. CLINICAL DECISIONS SHOULD BE BASED ON THE PRIMARY CLINICAL RECORDS. [facility]. provides no warranty or guarantee of the accuracy or completeness of information in this document.
== END 2024-09-21 10:51 | disposition home or self-care (01) ==
LOC: LAB 10:51
PROVIDERS: Visit Provider Obstetrics & Gynecology
DX: E34.9 Endocrine disorder, unspecified (principal)
CPT/HCPCS: 36415; 84145; 84146

== ENCOUNTER 2025-02-25 15:27 | Outpatient (REF) | payer MEDICAID, SELFPAY ==
[2025-03-02 14:09] LABS: Age Gdln ACOG Testing Note (.); HPV Aptima Negative (Negative); IGP, Aptima HPV, rfx 16/18,45 Note (.)
== END 2025-02-25 15:28 | disposition home or self-care (01) ==
LOC: LAB 15:27
PROVIDERS: Visit Provider Obstetrics & Gynecology
DX: Z01.419 Encounter for gynecological examination (general) (routine) without abnormal findings (principal); Z90.710 Acquired absence of both cervix and uterus
CPT/HCPCS: 87624; 88175